=== PATIENT | male | born 1965 | race Caucasian/White ===

== ENCOUNTER 2017-05-25 13:38 | Inpatient (IN) | payer MEDICAID, MEDICARE ==
[2017-05-25] MEDS ORDERED: Albuterol/Ipratropium 3.0-0.5 MG/3 ML Neb Soln NEB ONE (13:46)
--- NOTE | 2017-05-25 13:58 | EDM.PDOC ---
ED HPI GENERAL MEDICAL PROBLEM - General Chief Complaint: Respiratory Problem Stated Complaint: SOB Time Seen by Provider: 05/25/17 13:40 Source of Information: Reports: Patient, Family, Old Records History Limitations: Reports: No Limitations - History of Present Illness INITIAL COMMENTS - FREE TEXT/NARRATIVE: Tim comes to [facility] ED with an 18 hr hx of progressive wheezing and SOB. He reports no prior chest congestion, fever, cough, chest pain or palpitations. He has chronic back pain with comorbid sciatica in LLE and just finished Medrol yesterday. He does not smoke at this time. - Related Data Allergies Allergy/AdvReac Type Severity Reaction Status Date / Time amoxicillin [Amoxicillin] Allergy Unknown unknown Verified 05/25/17 14:03 latex Allergy Unknown unknown Verified 05/25/17 14:03 venom-honey bee Allergy Unknown unknown Verified 05/25/17 14:03 [bee venom (honey bee)] mushrooms Allergy Unknown unknown Uncoded 05/25/17 14:03 Home Meds: Home Meds Celecoxib [CeleBREX] 200 mg PO DAILY 05/25/14 [History] Cyclobenzaprine [Flexeril] 10 mg PO Q8H PRN 05/25/14 [History] QUEtiapine Fumarate [Seroquel] 300 mg PO DAILY 05/25/14 [History] Zolpidem Tartrate [Ambien] 10 mg PO BEDTIME 05/25/14 [History] Albuterol Sulfate [Ventolin Hfa] 2 puff INH Q4H PRN 05/25/17 [History] Albuterol [Proventil Neb Soln] 2.5 mg INH Q4H PRN 05/25/17 [History] Baclofen [Baclofen] 10 - 20 mg PO BEDTIME 05/25/17 [History] Dexamethasone [Dexamethasone] 4 mg PO BID 05/25/17 [History] EPINEPHrine [Epipen] 0.3 mg IM ASDIRECTED PRN 05/25/17 [History] Escitalopram [Lexapro] 20 mg PO DAILY 05/25/17 [History] Fluticasone/Salmeterol [Advair Diskus 500-50] 1 puff INH BID 05/25/17 [History] Niacin [Niacin ER] 1,000 mg PO BEDTIME 05/25/17 [History] Nortriptyline 25 mg PO BEDTIME 05/25/17 [History] Omeprazole [Omeprazole] 20 mg PO DAILY 05/25/17 [History] Simvastatin [Zocor] 20 mg PO BEDTIME 05/25/17 [History] Tamsulosin [Tamsulosin 24 Hr] 0.4 mg PO DAILY 05/25/17 [History] hydrOXYzine Pamoate [Hydroxyzine Pamoate] 25 mg PO TID PRN 05/25/17 [History] rOPINIRole [Requip] 1 - 2 tab PO BEDTIME 05/25/17 [History] sitaGLIPtin Phos/Metformin HCl [Janumet 50-1,000 MG] 1 tab PO BID 05/25/17 [ History] traMADol HCl [Tramadol HCl] 50 mg PO TID PRN 05/25/17 [History] Past Medical History Respiratory History: Reports: COPD Musculoskeletal History: Reports: Back Pain, Chronic Neurological History: Reports: Other (See Below) (sciatica L leg) Social & Family History - Tobacco Use Smoking Status *Q: Former Smoker Years of Tobacco use: 18 Used Tobacco, but Quit: Yes Month Tobacco Last Used: dec ED ROS GENERAL - Review of Systems Review Of Systems: See Below Constitutional: Reports: Malaise, Weakness HEENT: Reports: No Symptoms Respiratory: Reports: Shortness of Breath, Wheezing Cardiovascular: Reports: Dyspnea on Exertion Endocrine: Reports: No Symptoms GI/Abdominal: Reports: No Symptoms : Reports: No Symptoms Musculoskeletal: Reports: No Symptoms Skin: Reports: No Symptoms Neurological: Reports: Pre-Existing Deficit, Other (sciatica L leg) Psychiatric: Reports: No Symptoms Hematologic/Lymphatic: Reports: No Symptoms Immunologic: Reports: No Symptoms ED EXAM, GENERAL - Physical Exam Exam: See Below Exam Limited By: No Limitations General Appearance: Alert, WD/WN, Moderate Distress, Obese Eye Exam: Bilateral Eye: EOMI, Normal Inspection, PERRL Ears: Normal External Exam Nose: Normal Inspection Throat/Mouth: Normal Inspection, Normal Oropharynx Head: Normocephalic Neck: Normal Inspection, Supple, Non-Tender, Full Range of Motion Respiratory/Chest: Chest Non-Tender, Decreased Breath Sounds, Rhonchi, Wheezing Cardiovascular: Normal Peripheral Pulses, No Edema, No JVD, No Murmur, Tachycardia GI/Abdominal: Normal Bowel Sounds, Soft, Non-Tender, No Organomegaly, No Distention, No Mass Back Exam: Normal Inspection Extremities: Normal Inspection Neurological: Alert, Oriented, CN II-XII Intact, Normal Cognition, No Motor/ Sensory Deficits Psychiatric: Normal Affect, Anxious Skin Exam: Warm, Dry, Intact Lymphatic: No Adenopathy Course - Vital Signs Text/Narrative:: Tim experienced no clinical improvement with the DuoNeb. His chest x ray notes infiltrates in R lung [place], and pneumonia is suspected. He will be admitted, and hospitalist notified. Last Recorded V/S: Last Vital Signs Temp 37.9 C 05/25/17 14:12 Pulse 140 H 05/25/17 14:12 Resp 28 H 05/25/17 14:12 BP 112/75 05/25/17 14:12 Pulse Ox 91 L 05/25/17 14:56 - Orders/Labs/Meds Orders: Active Orders 24 hr Category Date Time Status EKG Documentation Completion [RC] ASDIRECTED Care 05/25/17 13:52 Active Oxygen Therapy Adult [Oxygen Therapy, ED] [RC] Care 05/25/17 14:56 Active ASDIRECTED RT Aerosol Therapy [RC] ASDIRECTED Care 05/25/17 13:47 Active Chest 1V Frontal [CR] Stat Exams 05/25/17 13:52 Taken URINALYSIS W/MICROSCOPIC [UA W/MICROSCOPIC] [URIN] Stat Lab 05/25/17 14:05 Uncollected Sodium Chloride 0.9% [Saline Flush] Med 05/25/17 14:21 Active 10 ml FLUSH ASDIRECTED PRN Peripheral IV Insertion Adult [OM.PC] Routine Oth 05/25/17 14:21 Ordered EKG 12 Lead [EK] Routine Ther 05/25/17 13:52 Ordered Medication Orders Sodium Chloride (Saline Flush) 10 ml FLUSH ASDIRECTED PRN PRN Reason: Keep Vein Open Labs: Laboratory Tests 05/25/17 05/25/17 05/25/17 Range/Units 14:05 14:05 14:05 WBC 17.9 H (4.5-12.0) X10-3/uL RBC 4.61 (4.30-5.75) x10(6)uL Hgb 14.4 (11.5-15.5) g/dL Hct 42.0 (30.0-51.3) % MCV 91.0 (80-96) fL MCH 31.2 (27.7-33.6) pg MCHC 34.3 (32.2-35.4) g/dL RDW 14.6 (11.5-15.5) % Plt Count 247 (125-369) X10(3)uL MPV 6.8 L (7.4-10.4) fL Add Manual Diff Yes Neutrophils % (Manual) 75 (46-82) % Band Neutrophils % 2 (0-6) % Lymphocytes % (Manual) 15 (13-37) % Monocytes % (Manual) 8 (4-12) % Sodium 131 L (135-145) mmol/L Potassium 3.9 (3.5-5.3) mmol/L Chloride 96 L D (100-110) mmol/L Carbon Dioxide 22 L (23-29) mmol/L BUN 12 (5-20) mg/dL Creatinine 0.8 (0.6-1.3) mg/dL Est Cr Clr Drug Dosing 95.03 mL/min Estimated GFR (MDRD) > 60 (>60) BUN/Creatinine Ratio 15.0 (9-20) Glucose 266 H D (80-116) mg/dL Hemoglobin A1c (4.0-6.0) % Calcium 9.4 (8.6-10.2) mg/dL Troponin I (0.02-0.06) NG/ML B-Natriuretic Peptide (0-100) pg/mL TSH, Ultra Sensitive 0.68 (0.4-5.5) nlU/mL 05/25/17 05/25/17 05/25/17 Range/Units 14:05 14:05 14:05 WBC (4.5-12.0) X10-3/uL RBC (4.30-5.75) x10(6)uL Hgb (11.5-15.5) g/dL Hct (30.0-51.3) % MCV (80-96) fL MCH (27.7-33.6) pg MCHC (32.2-35.4) g/dL RDW (11.5-15.5) % Plt Count (125-369) X10(3)uL MPV (7.4-10.4) fL Add Manual Diff Neutrophils % (Manual) (46-82) % Band Neutrophils % (0-6) % Lymphocytes % (Manual) (13-37) % Monocytes % (Manual) (4-12) % Sodium (135-145) mmol/L Potassium (3.5-5.3) mmol/L Chloride (100-110) mmol/L Carbon Dioxide (23-29) mmol/L BUN (5-20) mg/dL Creatinine (0.6-1.3) mg/dL Est Cr Clr Drug Dosing mL/min Estimated GFR (MDRD) (>60) BUN/Creatinine Ratio (9-20) Glucose (80-116) mg/dL Hemoglobin A1c 7.2 H (4.0-6.0) % Calcium (8.6-10.2) mg/dL Troponin I < 0.01 L (0.02-0.06) NG/ML B-Natriuretic Peptide 42 (0-100) pg/mL TSH, Ultra Sensitive (0.4-5.5) nlU/mL Meds: Medications Generic Name Dose Route Start Last Admin Trade Name Freq PRN Reason Stop Dose Admin Sodium Chloride 10 ml 05/25/17 14:21 Saline Flush FLUSH ASDIRECTED PRN Keep Vein Open Discontinued Medications Generic Name Dose Route Start Last Admin Trade Name Freq PRN Reason Stop Dose Admin Albuterol/Ipratropium 3 ml 05/25/17 13:46 05/25/17 13:50 Duoneb 3.0-0.5 Mg/3 Ml NEB 05/25/17 13:47 3 ml ONETIME ONE Administration Departure - Departure Time of Disposition: 15:16 Disposition: Admitted As Inpatient 67 Condition: Poor Clinical Impression: Acute exacerbation of COPD with asthma Community acquired pneumonia Qualifiers: Laterality: right Lung location: unspecified part of lung Qualified Code(s): J18.9 - Pneumonia, unspecified organism - Discharge Information Referrals: Alex Umana MD [Primary Care Provider] - Forms: ED Department Discharge - Problem List & Annotations (1) Acute exacerbation of COPD with asthma SNOMED Code(s): 958058555 Code(s): J44.1 - CHRONIC OBSTRUCTIVE PULMONARY DISEASE W (ACUTE) EXACERBATION ; J45.901 - UNSPECIFIED ASTHMA WITH (ACUTE) EXACERBATION Status: Acute Current Visit: Yes Annotation/Comment:: Admission to [facility]. (2) Community acquired pneumonia SNOMED Code(s): 507982914 Code(s): J18.9 - PNEUMONIA, UNSPECIFIED ORGANISM Status: Acute Current Visit: Yes Annotation/Comment:: Admission to [facility]. Qualifiers: Laterality: right Lung location: unspecified part of lung Qualified Code( s): J18.9 - Pneumonia, unspecified organism - My Orders Last 24 Hours: My Active Orders 05/25/17 13:47 RT Aerosol Therapy [RC] ASDIRECTED 05/25/17 13:52 EKG Documentation Completion [RC] ASDIRECTED Chest 1V Frontal [CR] Stat EKG 12 Lead [EK] Routine 05/25/17 14:05 URINALYSIS W/MICROSCOPIC [UA W/MICROSCOPIC] [URIN] Stat 05/25/17 14:21 Sodium Chloride 0.9% [Saline Flush] 10 ml FLUSH ASDIRECTED PRN Peripheral IV Insertion Adult [OM.PC] Routine 05/25/17 14:56 Oxygen Therapy Adult [Oxygen Therapy, ED] [RC] ASDIRECTED - Assessment/Plan Last 24 Hours: My Active Orders 05/25/17 13:47 RT Aerosol Therapy [RC] ASDIRECTED 05/25/17 13:52 EKG Documentation Completion [RC] ASDIRECTED Chest 1V Frontal [CR] Stat EKG 12 Lead [EK] Routine 05/25/17 14:05 URINALYSIS W/MICROSCOPIC [UA W/MICROSCOPIC] [URIN] Stat 05/25/17 14:21 Sodium Chloride 0.9% [Saline Flush] 10 ml FLUSH ASDIRECTED PRN Peripheral IV Insertion Adult [OM.PC] Routine 05/25/17 14:56 Oxygen Therapy Adult [Oxygen Therapy, ED] [] ASDIRECTED
[2017-05-25] MEDS ORDERED: Sodium Chloride 0.9% 10 ML Syringe FLUSH PRN (14:21)
[2017-05-25] MEDS ORDERED: predniSONE 20 MG Tab PO ONE (15:23)
[2017-05-25] MEDS ORDERED: Levofloxacin/Dextrose 5%-Water 750 MG in Premix Bag 1 BAG IV ONE (15:27)
--- NOTE | 2017-05-25 15:44 | CR ---
INDICATION: Dyspnea, history of COPD. COMPARISON: 25 May 2014. PORTABLE CHEST: Moderate cardiomegaly, with no definite interstitial edema, stable. Moderate mid to inferior lung, perihilar, bibasilar patchy airspace opacity and volume loss, mildly increased in the mid left lung field, mildly decreased left perihilar, basilar region, mildly increased in the right lung field. Minimal bilateral pleural effusions, mildly improved. No pneumothorax. No other interval change. IMPRESSION: 1. Moderate mid to inferior pulmonic consolidation for pneumonia versus aspiration versus segmental atelectasis and/or parenchymal scarring change, mildly increased right, mildly increased mid left, mildly decreased left perihilar, basilar region. 2. Minimal bilateral pleural effusions, mildly improved. MTDD
[2017-05-25] MEDS: Sodium Chloride 0.9% 1,000 ML IV SCH (16:24)
[2017-05-25] MEDS ORDERED: Aztreonam 2 GM in Sodium Chloride 0.9% 100 ML IV ONE (18:00)
[2017-05-25] MEDS ORDERED: HYDROXYZINE PAMOATE 25 MG PO PRN (20:13)
[2017-05-25] MEDS ORDERED: rOPINIRole 1 MG Tab ONE (20:38)
[2017-05-25] MEDS: Albuterol/Ipratropium 3.0-0.5 MG/3 ML Neb Soln NEB SCH ×2 (20:47)
[2017-05-25] MEDS: Zolpidem 5 MG Tab PO SCH (20:53)
[2017-05-25] MEDS: Nortriptyline 25 MG Cap PO SCH (20:56)
[2017-05-25] MEDS: Baclofen 10 MG Tab PO SCH (20:57)
[2017-05-25] MEDS ORDERED: rOPINIRole 0.5 MG Tab PO SCH (21:00)
[2017-05-25] MEDS ORDERED: Simvastatin 40 MG Tab PO SCH (21:00)
[2017-05-25] MEDS: HYDROmorphone 2 MG/ML SDV IVPUSH PRN (21:17)
[2017-05-25] MEDS: Insulin Aspart 100 Units/ML 3 ML Pen SUBCUT SCH (21:47)
[2017-05-25] MEDS: metFORMIN 1,000 MG Tab PO SCH (21:48)
[2017-05-25] MEDS: hydrOXYzine HCl 25 MG Tab PO PRN (22:17)
[2017-05-26] MEDS: HYDROmorphone 2 MG/ML SDV IVPUSH PRN ×4 (01:09→20:39)
[2017-05-26] MEDS: Albuterol/Ipratropium 3.0-0.5 MG/3 ML Neb Soln INH PRN ×3 (01:10→02:57)
[2017-05-26] MEDS: Sodium Chloride 0.9% 1,000 ML IV SCH ×3 (01:44→19:19)
[2017-05-26] MEDS: Albuterol/Ipratropium 3.0-0.5 MG/3 ML Neb Soln NEB SCH ×4 (06:31→20:36)
[2017-05-26] MEDS ORDERED: Cyclobenzaprine 10 MG Tab PO PRN (08:09)
[2017-05-26] MEDS: Insulin Aspart 100 Units/ML 3 ML Pen SUBCUT SCH ×3 (08:12→17:30)
[2017-05-26] MEDS: hydrOXYzine HCl 25 MG Tab PO PRN ×2 (08:24→16:10)
[2017-05-26] MEDS: methylPREDNISolone Sodium Succinate 125 MG/2 ML SDV IVPUSH SCH ×2 (08:44→20:35)
[2017-05-26] MEDS: metFORMIN 1,000 MG Tab PO SCH (08:45)
[2017-05-26] MEDS: Pantoprazole 40 MG Tab.CR PO SCH ×2 (08:45→20:38)
[2017-05-26] MEDS: Escitalopram 20 MG Tab PO SCH (08:45)
[2017-05-26] MEDS ORDERED: Albuterol/Ipratropium 3.0-0.5 MG/3 ML Neb Soln INH PRN (09:00)
--- NOTE | 2017-05-26 09:10 | PCM.HP ---
H&P History of Present Illness - General Date of Service: 05/26/17 Admit Problem/Dx: Admission Diagnosis/Problem Admission Diagnosis/Problem Pneumonia Source of Information: Patient History Limitations: Reports: No Limitations - History of Present Illness Initial Comments - Free Text/Narative: This is a 52-year-old male patient but said 2 day history of shortness of breath and dry cough. He was seen in the clinic yesterday and was profoundly hypoxic and sent to the ER and was admitted. Chest x-ray showed a pneumonia on the right side or aspiration. He states the ER told him he had a fever but he does not feel hot or cold. He has no nasal congestion, sore throat. He does have a history of COPD and asthma. He was a smoker for years and is now quit. He also complains of his back pain. He's had it for several months. He states the pain goes down his left leg and both legs are atrophied. He states she's lost over 50 pounds unintended. He's been seen the chiropractor and there is a MRI ordered this morning by Dr. Willard. low back Pain Score (Numeric/FACES): 10 - Related Data Allergies/Adverse Reactions: Allergies Allergy/AdvReac Type Severity Reaction Status Date / Time amoxicillin [Amoxicillin] Allergy Unknown unknown Verified 05/25/17 20:58 latex Allergy Unknown unknown Verified 05/25/17 20:58 venom-honey bee Allergy Unknown unknown Verified 05/25/17 20:58 [bee venom (honey bee)] mushrooms Allergy Unknown unknown Uncoded 05/25/17 20:58 Home Medications: Home Meds Celecoxib [CeleBREX] 200 mg PO BEDTIME 05/25/14 [History] Cyclobenzaprine [Flexeril] 10 mg PO TID 05/25/14 [History] QUEtiapine Fumarate [Seroquel] 300 mg PO BEDTIME 05/25/14 [History] Zolpidem Tartrate [Ambien] 10 mg PO BEDTIME 05/25/14 [History] Albuterol Sulfate [Ventolin Hfa] 2 puff INH Q4H PRN 05/25/17 [History] Albuterol [Proventil Neb Soln] 2.5 mg INH Q4H PRN 05/25/17 [History] Baclofen [Baclofen] 20 mg PO BEDTIME 05/25/17 [History] EPINEPHrine [Epipen] 0.3 mg IM ASDIRECTED PRN 05/25/17 [History] Escitalopram [Lexapro] 20 mg PO DAILY 05/25/17 [History] Fluticasone/Salmeterol [Advair Diskus 500-50] 1 puff INH BID 05/25/17 [History] Niacin [Niacin ER] 1,000 mg PO BEDTIME 05/25/17 [History] Nortriptyline 25 mg PO BEDTIME 05/25/17 [History] Omeprazole [Omeprazole] 20 mg PO BEDTIME 05/25/17 [History] Simvastatin [Zocor] 20 mg PO BEDTIME 05/25/17 [History] Tamsulosin [Tamsulosin 24 Hr] 0.4 mg PO BEDTIME 05/25/17 [History] hydrOXYzine Pamoate [Hydroxyzine Pamoate] 25 - 50 mg PO TID PRN 05/25/17 [ History] rOPINIRole [Requip] 1 mg PO BEDTIME 05/25/17 [History] sitaGLIPtin Phos/Metformin HCl [Janumet 50-1,000 MG] 1 tab PO BID 05/25/17 [ History] traMADol HCl [Tramadol HCl] 50 mg PO TID 05/25/17 [History] Past Medical History HEENT History: Reports: Impaired Vision Cardiovascular History: Reports: High Cholesterol, Hypertension Respiratory History: Reports: COPD Musculoskeletal History: Reports: Back Pain, Chronic Other Musculoskeletal History: Ankle, Bilateral wrist, and 3 toe fx Neurological History: Reports: Other (See Below) (sciatica L leg) Psychiatric History: Reports: Anxiety, Depression Endocrine/Metabolic History: Reports: Diabetes, Type II Dermatologic History: Reports: Psoriasis - Infectious Disease History Infectious Disease History: Reports: Chicken Pox - Past Surgical History HEENT Surgical History: Reports: None GI Surgical History: Reports: Appendectomy, Colonoscopy Social & Family History - Family History Family Medical History: Noncontributory - Tobacco Use Smoking Status *Q: Former Smoker Years of Tobacco use: 18 Used Tobacco, but Quit: Yes Month Tobacco Last Used: Gigi Tobacco Use Comment: quit 4 years ago - Caffeine Use Caffeine Use: Reports: None - Recreational Drug Use Recreational Drug Use: Yes Drug Use in Last 12 Months: Yes Recreational Drug Type: Reports: Marijuana/Hashish Recreational Drug Use Frequency: Rarely H&P Review of Systems - Review of Systems: Review Of Systems: See Below General: Reports: Diaphoresis, Weight Loss. Denies: Fever, Chills, Malaise, Weakness HEENT: Reports: No Symptoms Pulmonary: Reports: Shortness of Breath, Cough. Denies: Wheezing, Pleuritic Chest Pain, Sputum, Hemoptysis Cardiovascular: Reports: No Symptoms Gastrointestinal: Reports: No Symptoms Genitourinary: Reports: No Symptoms Musculoskeletal: Reports: Back Pain (Lumbar), Leg Pain (Left) Skin: Reports: No Symptoms Psychiatric: Reports: Anxiety Neurological: Reports: No Symptoms Hematologic/Lymphatic: Reports: No Symptoms Immunologic: Reports: No Symptoms Exam - Exam Exam: See Below - Vital Signs Vital Signs: Last Vital Signs Temp 97.7 F 05/26/17 06:00 Pulse 108 H 05/26/17 06:00 Resp 23 H 05/26/17 06:00 BP 125/89 05/26/17 06:00 Pulse Ox 95 05/26/17 06:00 Weight: 193 lb 3.2 oz - Exam General: Alert, Oriented, Cooperative HEENT: Hearing Intact, Mucosa Moist & [place], TMs Clear Neck: Supple, Trachea Midline Lungs: Normal Respiratory Effort, Decreased Breath Sounds (Right), Crackles ( Right base). No: Rales, Rhonchi, Wheezing Cardiovascular: Regular Rate, Regular Rhythm. No: Systolic Murmur, Diastolic Murmur GI/Abdominal Exam: Normal Bowel Sounds, Soft, Non-Tender, No Organomegaly, No Distention, No Abnormal Bruit, No Mass Back Exam: Normal Inspection, Muscle Spasm Extremities: No Pedal Edema, Other (Atrophied quadriceps bilateral) Skin: Warm, Dry, Intact Neurological: Normal Speech Neuro Extensive - Mental Status: Alert, Oriented x3, Normal Mood/Affect, Normal Cognition Psychiatric: Alert, Normal Mood - Patient Data Lab Results Last 24 hrs: Laboratory Results - last 24 hr 05/25/17 05/25/17 05/26/17 Range/Units 17:45 21:42 06:10 WBC 18.1 H (4.5-12.0) X10-3/uL RBC 4.00 L (4.30-5.75) x10(6)uL Hgb 12.7 (11.5-15.5) g/dL Hct 36.3 (30.0-51.3) % MCV 90.6 (80-96) fL MCH 31.7 (27.7-33.6) pg MCHC 35.0 (32.2-35.4) g/dL RDW 14.7 (11.5-15.5) % Plt Count 225 (125-369) X10(3)uL MPV 6.8 L (7.4-10.4) fL Add Manual Diff Yes Neutrophils % (Manual) 83 H (46-82) % Band Neutrophils % 3 (0-6) % Lymphocytes % (Manual) 13 (13-37) % Monocytes % (Manual) 1 L (4-12) % Toxic Granulation Moderate H (NOT SEEN) D-Dimer, Quantitative (100-400) ng/mL Sodium (135-145) mmol/L Potassium (3.5-5.3) mmol/L Chloride (100-110) mmol/L Carbon Dioxide (23-29) mmol/L BUN (5-20) mg/dL Creatinine (0.6-1.3) mg/dL Est Cr Clr Drug Dosing mL/min Estimated GFR (MDRD) (>60) BUN/Creatinine Ratio (9-20) Glucose (80-116) mg/dL POC Glucose 245 H (80-116) mg/dL Calcium (8.6-10.2) mg/dL B-Natriuretic Peptide (0-100) pg/mL Urine Color Yellow (YELLOW) Urine Appearance Clear (CLEAR) Urine pH 6.0 (5.0-6.5) Ur Specific [place] 1.020 (1.010-1.025) Urine Protein Negative (NEGATIVE) mg/dL Urine Glucose (UA) >1000 H (NEGATIVE) mg/dL Urine Ketones Negative (NEGATIVE) mg/dL Urine Occult Blood Moderate H (NEGATIVE) Urine Nitrite Negative (NEGATIVE) Urine Bilirubin Negative (NEGATIVE) Urine Urobilinogen 4 H (NEGATIVE) mg/dL Ur Leukocyte Esterase Negative (NEGATIVE) Urine RBC 5-10 (0) Urine WBC 0-5 (0) Ur Squamous Epith Cells Rare (NS,R,O) Urine Bacteria Few H (NS) 05/26/17 05/26/17 05/26/17 Range/Units 06:10 06:10 06:10 WBC (4.5-12.0) X10-3/uL RBC (4.30-5.75) x10(6)uL Hgb (11.5-15.5) g/dL Hct (30.0-51.3) % MCV (80-96) fL MCH (27.7-33.6) pg MCHC (32.2-35.4) g/dL RDW (11.5-15.5) % Plt Count (125-369) X10(3)uL MPV (7.4-10.4) fL Add Manual Diff Neutrophils % (Manual) (46-82) % Band Neutrophils % (0-6) % Lymphocytes % (Manual) (13-37) % Monocytes % (Manual) (4-12) % Toxic Granulation (NOT SEEN) D-Dimer, Quantitative 3650 H (100-400) ng/mL Sodium 132 L (135-145) mmol/L Potassium 4.1 (3.5-5.3) mmol/L Chloride 99 L (100-110) mmol/L Carbon Dioxide 22 L (23-29) mmol/L BUN 11 (5-20) mg/dL Creatinine 0.8 (0.6-1.3) mg/dL Est Cr Clr Drug Dosing 95.03 mL/min Estimated GFR (MDRD) > 60 (>60) BUN/Creatinine Ratio 13.8 (9-20) Glucose 228 H (80-116) mg/dL POC Glucose (80-116) mg/dL Calcium 8.9 (8.6-10.2) mg/dL B-Natriuretic Peptide 57 (0-100) pg/mL Urine Color (YELLOW) Urine Appearance (CLEAR) Urine pH (5.0-6.5) Ur Specific [place] (1.010-1.025) Urine Protein (NEGATIVE) mg/dL Urine Glucose (UA) (NEGATIVE) mg/dL Urine Ketones (NEGATIVE) mg/dL Urine Occult Blood (NEGATIVE) Urine Nitrite (NEGATIVE) Urine Bilirubin (NEGATIVE) Urine Urobilinogen (NEGATIVE) mg/dL Ur Leukocyte Esterase (NEGATIVE) Urine RBC (0) Urine WBC (0) Ur Squamous Epith Cells (NS,R,O) Urine Bacteria (NS) 05/26/17 Range/Units 07:40 WBC (4.5-12.0) X10-3/uL RBC (4.30-5.75) x10(6)uL Hgb (11.5-15.5) g/dL Hct (30.0-51.3) % MCV (80-96) fL MCH (27.7-33.6) pg MCHC (32.2-35.4) g/dL RDW (11.5-15.5) % Plt Count (125-369) X10(3)uL MPV (7.4-10.4) fL Add Manual Diff Neutrophils % (Manual) (46-82) % Band Neutrophils % (0-6) % Lymphocytes % (Manual) (13-37) % Monocytes % (Manual) (4-12) % Toxic Granulation (NOT SEEN) D-Dimer, Quantitative (100-400) ng/mL Sodium (135-145) mmol/L Potassium (3.5-5.3) mmol/L Chloride (100-110) mmol/L Carbon Dioxide (23-29) mmol/L BUN (5-20) mg/dL Creatinine (0.6-1.3) mg/dL Est Cr Clr Drug Dosing mL/min Estimated GFR (MDRD) (>60) BUN/Creatinine Ratio (9-20) Glucose (80-116) mg/dL POC Glucose 204 H (80-116) mg/dL Calcium (8.6-10.2) mg/dL B-Natriuretic Peptide (0-100) pg/mL Urine Color (YELLOW) Urine Appearance (CLEAR) Urine pH (5.0-6.5) Ur Specific [place] (1.010-1.025) Urine Protein (NEGATIVE) mg/dL Urine Glucose (UA) (NEGATIVE) mg/dL Urine Ketones (NEGATIVE) mg/dL Urine Occult Blood (NEGATIVE) Urine Nitrite (NEGATIVE) Urine Bilirubin (NEGATIVE) Urine Urobilinogen (NEGATIVE) mg/dL Ur Leukocyte Esterase (NEGATIVE) Urine RBC (0) Urine WBC (0) Ur Squamous Epith Cells (NS,R,O) Urine Bacteria (NS) Result Diagrams: 05/26/17 06:10 05/26/17 06:10 *Q Meaningful Use (ADM) - VTE *Q VTE Criteria *Q: - Stroke *Q Stroke Criteria *Q: - AMI *Q AMI Criteria *Q: - Problem List (1) Low back pain with left-sided sciatica SNOMED Code(s): 744719520 ICD Code: M54.42 - LUMBAGO WITH SCIATICA, LEFT SIDE Status: Acute Current Visit: Yes (2) Unintended weight loss SNOMED Code(s): 522648195 ICD Code: R63.4 - ABNORMAL WEIGHT LOSS Status: Acute Current Visit: Yes (3) Microscopic hematuria SNOMED Code(s): 087994182 ICD Code: R31.29 - OTHER MICROSCOPIC HEMATURIA Status: Acute Current Visit: Yes (4) Elevated d-dimer SNOMED Code(s): 887905942 ICD Code: R79.89 - OTHER SPECIFIED ABNORMAL FINDINGS OF BLOOD CHEMISTRY Status: Acute Current Visit: Yes (5) Acute exacerbation of COPD with asthma SNOMED Code(s): 481152387 ICD Code: J44.1 - CHRONIC OBSTRUCTIVE PULMONARY DISEASE W (ACUTE) EXACERBATION; J45.901 - UNSPECIFIED ASTHMA WITH (ACUTE) EXACERBATION Status: Acute Current Visit: Yes Problem Details: Admission to [facility]. (6) Community acquired pneumonia SNOMED Code(s): 739280906 ICD Code: J18.9 - PNEUMONIA, UNSPECIFIED ORGANISM Status: Acute Current Visit: Yes Problem Details: Admission to [facility]. Qualifiers: Laterality: right Lung location: unspecified part of lung Qualified Code( s): J18.9 - Pneumonia, unspecified organism (7) Type 2 diabetes mellitus SNOMED Code(s): 81526955 ICD Code: E11.9 - TYPE 2 DIABETES MELLITUS WITHOUT COMPLICATIONS Status: Acute Current Visit: Yes Problem List Initiated/Reviewed/Updated: Yes Orders Last 24hrs: Active Orders 24 hr Category Date Time Status Accu Check [Blood Glucose Check, Bedside] [] Care 05/26/17 08:14 Active QIDACANDBED Blood Glucose Check, Bedside [] TIDMEALS Care 05/25/17 20:11 Active RT Aerosol Therapy [] ASDIRECTED Care 05/25/17 20:11 Active Telemetry Monitoring [Cardiac Monitoring] [] 08,16,00 Care 05/25/17 16:59 Active Consistent Carbohydrate Diet [DIET] Diet 05/26/17 Breakfast Active Abdomen Pelvis wo Cont [CT] Routine Exams 05/26/17 09:02 Ordered Chest w wo Cont [CT] Routine Exams 05/26/17 09:02 Ordered CULTURE BLOOD [BC] Urgent Lab 05/26/17 08:19 Received CULTURE BLOOD [BC] Urgent Lab 05/26/17 08:27 Received CULTURE SPUTUM + SMEAR [RM] Routine Lab 05/26/17 08:16 Uncollected Albuterol/Ipratropium [DuoNeb 3.0-0.5 MG/3 ML] Med 05/26/17 09:00 Active 3 ml INH Q2H PRN Albuterol/Ipratropium [DuoNeb 3.0-0.5 MG/3 ML] Med 05/25/17 20:15 Active 3 ml NEB QIDRT Baclofen [Lioresal] Med 05/25/17 21:00 Active 10 mg PO BEDTIME Celecoxib [CeleBREX] Med 05/26/17 21:00 Active 200 mg PO BEDTIME Cyclobenzaprine [Flexeril] Med 05/26/17 08:09 Active 10 mg PO Q8H PRN Escitalopram [Lexapro] Med 05/26/17 09:00 Active 20 mg PO DAILY HYDROmorphone [Dilaudid] Med 05/25/17 20:12 Active 1 mg IVPUSH Q4H PRN Insulin Aspart [NovoLOG] Med 05/25/17 20:15 Active See Protocol SUBCUT TIDMEALS Levofloxacin/Dextrose 5%-Water [Levaquin in D5W 750 MG/ Med 05/26/17 16:00 Active 150 ML] 750 mg Premix Bag 1 bag IV Q24H Niacin Med 05/26/17 21:00 Active 500 mg PO BEDTIME Nortriptyline Med 05/25/17 21:00 Active 25 mg PO BEDTIME Pantoprazole [ProTONIX] Med 05/26/17 09:00 Active 40 mg PO BEDTIME QUEtiapine [SEROquel] Med 05/26/17 21:00 Active 300 mg PO BEDTIME Simvastatin [Zocor] Med 05/26/17 21:00 Active 20 mg PO BEDTIME SitaGLIPtin [Januvia] Med 05/25/17 21:30 Active 50 mg PO BID Sodium Chloride 0.9% [Normal Saline] 1,000 ml Med 05/25/17 15:30 Active IV ASDIRECTED Tamsulosin [Flomax] Med 05/26/17 21:00 Active 0.4 mg PO BEDTIME Zolpidem [Ambien] Med 05/25/17 21:00 Active 10 mg PO BEDTIME hydrOXYzine HCl [Atarax] Med 05/25/17 21:46 Active 25 mg PO TID PRN metFORMIN [Glucophage] Med 05/25/17 21:00 Active 1,000 mg PO BID methylPREDNISolone Sod Succ [Solu-MEDROL] Med 05/26/17 08:15 Active 125 mg IVPUSH Q12H rOPINIRole [Requip] Med 05/26/17 21:00 Active 1 mg PO BEDTIME Blood Culture x2 Reflex Set [OM.PC] Urgent Oth 05/26/17 08:15 Ordered Code Status [Resuscitation Status] Routine Resus Stat 05/25/17 20:15 Ordered Medication Orders Albuterol/Ipratropium (Duoneb 3.0-0.5 Mg/3 Ml) 3 ml NEB QIDRT [facility] Last Admin: 05/26/17 06:31 Dose: 3 ml Admin: 05/25/17 20:47 Dose: Admin: 05/25/17 20:47 Dose: 3 ml Albuterol/Ipratropium (Duoneb 3.0-0.5 Mg/3 Ml) 3 ml INH Q2H PRN PRN Reason: Shortness of Breath Baclofen (Lioresal) 10 mg PO BEDTIME [facility] Last Admin: 05/25/17 20:57 Dose: 10 mg Celecoxib (Celebrex) 200 mg PO BEDTIME [facility] Cyclobenzaprine HCl (Flexeril) 10 mg PO Q8H PRN PRN Reason: Pain Escitalopram Oxalate (Lexapro) 20 mg PO DAILY [facility] Last Admin: 05/26/17 08:45 Dose: 20 mg Hydromorphone HCl (Dilaudid) 1 mg IVPUSH Q4H PRN PRN Reason: Breakthrough Pain Last Admin: 05/26/17 06:47 Dose: 1 mg Admin: 05/26/17 01:09 Dose: 1 mg Admin: 05/25/17 21:17 Dose: 1 mg Hydroxyzine HCl (Atarax) 25 mg PO TID PRN PRN Reason: Anxiety Last Admin: 05/26/17 08:24 Dose: 25 mg Admin: 05/25/17 22:17 Dose: 25 mg Sodium Chloride (Normal Saline) 1,000 mls @ 125 mls/hr IV ASDIRECTED [facility] Last Admin: 05/26/17 08:26 Dose: 150 mls/hr Infusion: 05/26/17 08:25 Dose: 150 mls/hr Admin: 05/26/17 01:44 Dose: 150 mls/hr Infusion: 05/25/17 23:05 Dose: 150 mls/hr Admin: 05/25/17 16:24 Dose: 150 mls/hr Levofloxacin/Dextrose 750 mg/ (Premix) 150 mls @ 100 mls/hr IV Q24H [facility] Insulin Aspart (Novolog) 0 unit SUBCUT TIDMEALS [facility] PRN Reason: Protocol Last Admin: 05/26/17 08:12 Dose: 6 unit Admin: 05/25/17 21:47 Dose: Metformin HCl (Glucophage) 1,000 mg PO BID [facility] Last Admin: 05/26/17 08:45 Dose: 1,000 mg Admin: 05/25/17 21:48 Dose: 1,000 mg Methylprednisolone Sodium Succinate (Solu-Medrol) 125 mg IVPUSH Q12H [facility] Last Admin: 05/26/17 08:44 Dose: 125 mg Niacin (Niacin) 500 mg PO BEDTIME [facility] Nortriptyline HCl (Nortriptyline) 25 mg PO BEDTIME [facility] Last Admin: 05/25/17 20:56 Dose: 25 mg Pantoprazole Sodium (Protonix) 40 mg PO BEDTIME [facility] Last Admin: 05/26/17 08:45 Dose: 40 mg Quetiapine Fumarate (Seroquel) 300 mg PO BEDTIME [facility] Ropinirole HCl (Requip) 1 mg PO BEDTIME [facility] Simvastatin (Zocor) 20 mg PO BEDTIME [facility] Sitagliptin Phosphate (Januvia) 50 mg PO BID [facility] Last Admin: 05/26/17 08:45 Dose: 50 mg Admin: 05/25/17 21:49 Dose: 50 mg Sodium Chloride (Saline Flush) 10 ml FLUSH ASDIRECTED PRN PRN Reason: Keep Vein Open Tamsulosin HCl (Flomax) 0.4 mg PO BEDTIME [facility] Zolpidem Tartrate (Ambien) 10 mg PO BEDTIME [facility] Last Admin: 05/25/17 20:53 Dose: 10 mg Assessment/Plan Comment:: 1. Admit for antibiotics and oxygen therapy. 2. Proceed to CT scan of the chest, abdomen, pelvis regarding elevated d-dimer, pneumonia, hypoxia, unintended weight loss, microscopic hematuria. 3. Proceed with MRI of his low back today 4. Levaquin 750 mg IV every 24 hours 5. Solu-Medrol 125 mg every 12 hours 6. Accu-Cheks 4 times a day 7. Sliding scale insulin 8. Start home meds 9. Up ad ally. 10. ADA diet.
[2017-05-26] MEDS ORDERED: Iopamidol 755 Mg/ML 75 ML Bottle IV ONE (11:27)
[2017-05-26] MEDS: Levofloxacin/Dextrose 5%-Water 750 MG in Premix Bag 1 BAG IV SCH (16:23)
[2017-05-26] MEDS: Zolpidem 5 MG Tab PO SCH (20:36)
[2017-05-26] MEDS: Celecoxib 200 MG Cap PO SCH (20:36)
[2017-05-26] MEDS: Baclofen 10 MG Tab PO SCH (20:37)
[2017-05-26] MEDS: Tamsulosin 0.4 MG Cap.ER PO SCH (20:37)
[2017-05-26] MEDS: Nortriptyline 25 MG Cap PO SCH (20:37)
[2017-05-26] MEDS: Niacin 500 MG Cap.ER PO SCH (20:37)
[2017-05-26] MEDS: Simvastatin 20 MG Tab PO SCH (20:38)
[2017-05-26] MEDS: QUEtiapine 100 MG Tab PO SCH (20:38)
[2017-05-26] MEDS: rOPINIRole 1 MG Tab PO SCH (20:38)
[2017-05-27] MEDS: Sodium Chloride 0.9% 1,000 ML IV SCH ×3 (03:26→20:49)
[2017-05-27] MEDS: Albuterol/Ipratropium 3.0-0.5 MG/3 ML Neb Soln NEB SCH ×4 (07:11→21:14)
[2017-05-27] MEDS: methylPREDNISolone Sodium Succinate 125 MG/2 ML SDV IVPUSH SCH ×2 (07:49→16:53)
[2017-05-27] MEDS: Escitalopram 20 MG Tab PO SCH (08:34)
[2017-05-27] MEDS: Insulin Aspart 100 Units/ML 3 ML Pen SUBCUT SCH ×3 (08:36→18:26)
[2017-05-27] MEDS ORDERED: hydrOXYzine HCl 25 MG Tab PO PRN (09:11)
--- NOTE | 2017-05-27 09:16 | PCM.PN ---
- General Info Date of Service: 05/27/17 Admission Dx/Problem (Free Text): Patient states he feels better today than yesterday. He reported to the respiratory therapist though he felt worse today. He states she's cough and has a little chills but no fevers. No chest pain. Later in the morning the patient was very short of breath. And I came back and he says he thinks it was a panic attack. Nurses report that he soaked through 3 bedsheets with diaphoresis last night. He sees he slept well. - Patient Data Vitals - Most Recent: Last Vital Signs Temp 96.8 F 05/27/17 07:58 Pulse 120 H 05/27/17 07:58 Resp 32 H 05/27/17 07:58 BP 115/80 05/27/17 03:31 Pulse Ox 95 05/27/17 08:54 Weight - Most Recent: 198 lb 14.4 oz I&O - Last 24 Hours: Intake & Output 05/26/17 05/27/17 05/27/17 22:59 06:59 14:59 Intake Total 800 1090 Balance 800 1090 Lab Results Last 24 Hours: Laboratory Results - last 24 hr 05/26/17 05/26/17 05/26/17 Range/Units 11:28 17:06 20:51 WBC (4.5-12.0) X10-3/uL RBC (4.30-5.75) x10(6)uL Hgb (11.5-15.5) g/dL Hct (30.0-51.3) % MCV (80-96) fL MCH (27.7-33.6) pg MCHC (32.2-35.4) g/dL RDW (11.5-15.5) % Plt Count (125-369) X10(3)uL MPV (7.4-10.4) fL Add Manual Diff Neutrophils % (Manual) (46-82) % Band Neutrophils % (0-6) % Lymphocytes % (Manual) (13-37) % Monocytes % (Manual) (4-12) % ABG pH (7.35-7.45) ABG pCO2 (35-45) mmHg ABG pO2 (83-108) mmHg ABG HCO3 (22-26) mmol/L ABG O2 Saturation (96-97) % ABG Base Excess (-2-2) Art Test O2 Delivery Device Sodium (135-145) mmol/L Potassium (3.5-5.3) mmol/L Chloride (100-110) mmol/L Carbon Dioxide (23-29) mmol/L BUN (5-20) mg/dL Creatinine (0.6-1.3) mg/dL Est Cr Clr Drug Dosing mL/min Estimated GFR (MDRD) (>60) BUN/Creatinine Ratio (9-20) Glucose (80-116) mg/dL POC Glucose 239 H 274 H 183 H D (80-116) mg/dL Calcium (8.6-10.2) mg/dL Total Bilirubin (0.1-1.3) mg/dL AST (5-27) IU/L ALT (14-26) IU/L Alkaline Phosphatase (56-112) IU/L Total Protein (6.0-8.0) g/dL Albumin (3.5-5.2) g/dL Globulin g/dL Albumin/Globulin Ratio 05/27/17 05/27/17 05/27/17 Range/Units 06:20 06:20 08:25 WBC 15.9 H (4.5-12.0) X10-3/uL RBC 3.75 L (4.30-5.75) x10(6)uL Hgb 11.7 (11.5-15.5) g/dL Hct 34.1 (30.0-51.3) % MCV 91.1 (80-96) fL MCH 31.2 (27.7-33.6) pg MCHC 34.3 (32.2-35.4) g/dL RDW 14.5 (11.5-15.5) % Plt Count 189 (125-369) X10(3)uL MPV 7.0 L (7.4-10.4) fL Add Manual Diff Yes Neutrophils % (Manual) 80 (46-82) % Band Neutrophils % 5 (0-6) % Lymphocytes % (Manual) 10 L (13-37) % Monocytes % (Manual) 5 (4-12) % ABG pH 7.43 (7.35-7.45) ABG pCO2 30 L (35-45) mmHg ABG pO2 53 L (83-108) mmHg ABG HCO3 19 L (22-26) mmol/L ABG O2 Saturation 89 L (96-97) % ABG Base Excess -3.4 L (-2-2) Art Test Passed O2 Delivery Device Non rebr mask Sodium 135 (135-145) mmol/L Potassium 4.1 (3.5-5.3) mmol/L Chloride 103 (100-110) mmol/L Carbon Dioxide 24 (23-29) mmol/L BUN 11 (5-20) mg/dL Creatinine 0.6 (0.6-1.3) mg/dL Est Cr Clr Drug Dosing 126.70 mL/min Estimated GFR (MDRD) > 60 (>60) BUN/Creatinine Ratio 18.3 (9-20) Glucose 249 H (80-116) mg/dL POC Glucose (80-116) mg/dL Calcium 8.6 (8.6-10.2) mg/dL Total Bilirubin 0.8 (0.1-1.3) mg/dL AST 32 H (5-27) IU/L ALT 45 H D (14-26) IU/L Alkaline Phosphatase 90 (56-112) IU/L Total Protein 5.1 L (6.0-8.0) g/dL Albumin 2.3 L (3.5-5.2) g/dL Globulin 2.8 g/dL Albumin/Globulin Ratio 0.8 Jose Results Last 24 Hours: Microbiology 05/26/17 08:27 Aerobic Blood Culture - Preliminary Blood - Venous - Lab Draw NO GROWTH AFTER 1 DAY Anaerobic Blood Culture - Preliminary NO GROWTH AFTER 1 DAY 05/26/17 08:19 Aerobic Blood Culture - Preliminary Blood - Venous NO GROWTH AFTER 1 DAY Anaerobic Blood Culture - Preliminary NO GROWTH AFTER 1 DAY Med Orders - Current: Current Medications Albuterol/Ipratropium (Duoneb 3.0-0.5 Mg/3 Ml) 3 ml NEB QIDRT [facility] Last Admin: 05/27/17 07:11 Dose: 3 ml Albuterol/Ipratropium (Duoneb 3.0-0.5 Mg/3 Ml) 3 ml INH Q2H PRN PRN Reason: Shortness of Breath Baclofen (Lioresal) 10 mg PO BEDTIME [facility] Last Admin: 05/26/17 20:37 Dose: 10 mg Celecoxib (Celebrex) 200 mg PO BEDTIME [facility] Last Admin: 05/26/17 20:36 Dose: 200 mg Cyclobenzaprine HCl (Flexeril) 10 mg PO Q8H PRN PRN Reason: Pain Escitalopram Oxalate (Lexapro) 20 mg PO DAILY [facility] Last Admin: 05/27/17 08:34 Dose: 20 mg Hydromorphone HCl (Dilaudid) 1 mg IVPUSH Q4H PRN PRN Reason: Breakthrough Pain Last Admin: 05/26/17 20:39 Dose: 1 mg Hydroxyzine HCl (Atarax) 25 mg PO Q6H PRN PRN Reason: Anxiety Sodium Chloride (Normal Saline) 1,000 mls @ 125 mls/hr IV ASDIRECTED [facility] Last Admin: 05/27/17 03:26 Dose: 125 mls/hr Levofloxacin/Dextrose 750 mg/ (Premix) 150 mls @ 100 mls/hr IV Q24H [facility] Last Admin: 05/26/17 16:23 Dose: 100 mls/hr Insulin Aspart (Novolog) 0 unit SUBCUT TIDMEALS [facility] PRN Reason: Protocol Last Admin: 05/27/17 08:36 Dose: 6 unit Metformin HCl (Glucophage) 1,000 mg PO BID [facility] Last Admin: 05/26/17 08:45 Dose: 1,000 mg Methylprednisolone Sodium Succinate (Solu-Medrol) 125 mg IVPUSH Q12H [facility] Last Admin: 05/27/17 07:49 Dose: 125 mg Niacin (Niacin) 500 mg PO BEDTIME [facility] Last Admin: 05/26/17 20:37 Dose: 500 mg Nortriptyline HCl (Nortriptyline) 25 mg PO BEDTIME [facility] Last Admin: 05/26/17 20:37 Dose: 25 mg Pantoprazole Sodium (Protonix) 40 mg PO BEDTIME [facility] Last Admin: 05/26/17 20:38 Dose: 40 mg Quetiapine Fumarate (Seroquel) 300 mg PO BEDTIME [facility] Last Admin: 05/26/17 20:38 Dose: 300 mg Ropinirole HCl (Requip) 1 mg PO BEDTIME [facility] Last Admin: 05/26/17 20:38 Dose: 1 mg Simvastatin (Zocor) 20 mg PO BEDTIME [facility] Last Admin: 05/26/17 20:38 Dose: 20 mg Sitagliptin Phosphate (Januvia) 50 mg PO BID [facility] Last Admin: 05/27/17 08:34 Dose: 50 mg Sodium Chloride (Saline Flush) 10 ml FLUSH ASDIRECTED PRN PRN Reason: Keep Vein Open Tamsulosin HCl (Flomax) 0.4 mg PO BEDTIME [facility] Last Admin: 05/26/17 20:37 Dose: 0.4 mg Zolpidem Tartrate (Ambien) 10 mg PO BEDTIME [facility] Last Admin: 05/26/17 20:36 Dose: 10 mg Discontinued Medications Albuterol/Ipratropium (Duoneb 3.0-0.5 Mg/3 Ml) 3 ml NEB ONETIME ONE Stop: 05/25/17 13:47 Last Admin: 05/25/17 13:50 Dose: 3 ml Albuterol/Ipratropium (Duoneb 3.0-0.5 Mg/3 Ml) 3 ml INH ASDIRECTED PRN PRN Reason: Shortness of Breath Last Admin: 05/26/17 02:57 Dose: 3 ml Hydroxyzine HCl (Atarax) 25 mg PO TID PRN PRN Reason: Anxiety Last Admin: 05/26/17 16:10 Dose: 25 mg Levofloxacin/Dextrose 750 mg/ (Premix) 150 mls @ 100 mls/hr IV ONETIME ONE Stop: 05/25/17 16:56 Last Admin: 05/25/17 16:25 Dose: 100 mls/hr Aztreonam 2 gm/ Sodium (Chloride) 100 mls @ 200 mls/hr IV ONETIME ONE Stop: 05/25/17 18:29 Last Admin: 05/25/17 18:05 Dose: 200 mls/hr Tobramycin 200 mg/ Sodium (Chloride) 105 mls @ 100 mls/hr IV ONETIME ONE Stop: 05/25/17 20:02 Last Admin: 05/25/17 18:50 Dose: 100 mls/hr Iopamidol (Isovue-370 (76%)) 75 ml IV ASDIRECTED ONE Stop: 05/26/17 11:28 Last Admin: 05/26/17 11:56 Dose: 71 ml Hydroxyzine Pamoate (25mg) 25 mg PO TID PRN PRN Reason: Anxiety Prednisone (Prednisone) 60 mg PO ONETIME ONE Stop: 05/25/17 15:24 Last Admin: 05/25/17 17:02 Dose: 60 mg Ropinirole HCl (Requip) 1 mg PO BEDTIME [facility] Last Admin: 05/25/17 20:55 Dose: Not Given Ropinirole HCl (Requip) Confirm Administered Dose 1 mg .ROUTE .STK-MED ONE Stop: 05/25/17 20:39 Last Admin: 05/25/17 20:51 Dose: 1 mg Simvastatin (Zocor) 20 mg PO BEDTIME [facility] Last Admin: 05/25/17 20:53 Dose: 20 mg - Exam General: Alert, Oriented, Other (when I first saw him he was comfortable with his nonrebreather. Came back later in he was often impulsive and was very distress.) Lungs: Rales (Right base) Cardiovascular: Regular Rate, Regular Rhythm, No Murmurs, Tachycardia Skin: Warm, Dry, Intact Psy/Mental Status: Alert, Normal Affect, Normal Mood - Problem List & Annotations (1) Low back pain with left-sided sciatica SNOMED Code(s): 028818809 Code(s): M54.42 - LUMBAGO WITH SCIATICA, LEFT SIDE Status: Acute Current Visit: Yes (2) Unintended weight loss SNOMED Code(s): 324168713 Code(s): R63.4 - ABNORMAL WEIGHT LOSS Status: Acute Current Visit: Yes (3) Microscopic hematuria SNOMED Code(s): 451919988 Code(s): R31.29 - OTHER MICROSCOPIC HEMATURIA Status: Acute Current Visit : Yes (4) Elevated d-dimer SNOMED Code(s): 610820097 Code(s): R79.89 - OTHER SPECIFIED ABNORMAL FINDINGS OF BLOOD CHEMISTRY Status: Acute Current Visit: Yes (5) Acute exacerbation of COPD with asthma SNOMED Code(s): 802859271 Code(s): J44.1 - CHRONIC OBSTRUCTIVE PULMONARY DISEASE W (ACUTE) EXACERBATION ; J45.901 - UNSPECIFIED ASTHMA WITH (ACUTE) EXACERBATION Status: Acute Current Visit: Yes Annotation/Comment:: [facility]. (6) Community acquired pneumonia SNOMED Code(s): 500721570 Code(s): J18.9 - PNEUMONIA, UNSPECIFIED ORGANISM Status: Acute Current Visit: Yes Qualifiers: Laterality: right Lung location: unspecified part of lung Qualified Code( s): J18.9 - Pneumonia, unspecified organism Annotation/Comment:: Admission to [facility]. (7) Type 2 diabetes mellitus SNOMED Code(s): 12704888 Code(s): E11.9 - TYPE 2 DIABETES MELLITUS WITHOUT COMPLICATIONS Status: Acute Current Visit: Yes - Problem List Review Problem List Initiated/Reviewed/Updated: Yes - My Orders Last 24 Hours: My Active Orders 05/26/17 08:14 Accu Check [Blood Glucose Check, Bedside] [RC] QIDACANDBED 05/26/17 08:15 methylPREDNISolone Sod Succ [Solu-MEDROL] 125 mg IVPUSH Q12H Blood Culture x2 Reflex Set [OM.PC] Urgent 05/26/17 08:16 CULTURE SPUTUM + SMEAR [RM] Routine 05/26/17 08:19 CULTURE BLOOD [BC] Urgent 05/26/17 08:27 CULTURE BLOOD [BC] Urgent 05/26/17 09:02 Abdomen Pelvis w Cont [CT] Routine Ang Chest [CT] Routine 05/26/17 13:40 Lumbar Spine Comp wo Cont [MR] Routine 05/26/17 16:00 Levofloxacin/Dextrose 5%-Water [Levaquin in D5W 750 MG/150 ML] 750 mg Premix Bag 1 bag IV Q24H 05/27/17 08:07 LEGIONELLA,PNEUMO AG URINE [REF] Routine 05/27/17 08:40 HIV 1/2 AB RFLX TO SUPPL [REF] Routine 05/27/17 08:49 RT BiPAP/CPAP [RC] ASDIRECTED 05/27/17 09:08 Patient Status Manage Transfer [TRANSFER] Routine 05/27/17 09:11 hydrOXYzine HCl [Atarax] 25 mg PO Q6H PRN 05/27/17 16:00 ABG [BLOOD GAS ARTERIAL] [BG] Routine - Plan Plan:: 1. Transfer to ICU with BiPAP. Respiratory to titrate. 2. Discuss transfer the patient and he would like to stay here and was he gets worse. At this point I feel comfortable now that he is on the BiPAP. He states he was having a panic attack when he was short of breath. He takes Vistaril for that and has not been given to him. 3. I changes Vistaril 2 every 6 hours when necessary for anxiety. Was 3 times a day. 4. Check HIV, urine for Legionella/pneumonia 5. Routine ICU orders.
[2017-05-27] MEDS: HYDROmorphone 2 MG/ML SDV IVPUSH PRN ×2 (15:11→20:23)
[2017-05-27] MEDS: Levofloxacin/Dextrose 5%-Water 750 MG in Premix Bag 1 BAG IV SCH (16:09)
--- NOTE | 2017-05-27 16:25 | PCM.PN ---
- General Info Date of Service: 05/27/17 Admission Dx/Problem (Free Text): Patient states the BiPAP is working well for him. Keep his oxygen saturation. He does have some anxiety when he takes a Vistaril he feels better. The nurses have him on nonrebreather for a break from the BiPAP. Saturations around 85%. The nurses report when he is anxious his saturation was down and the Vistaril when it goes up. He states Dr. Willard gives him 25-50 mg Vistaril 3 times a day for his anxiety. - Patient Data Vitals - Most Recent: Last Vital Signs Temp 97.4 F 05/27/17 12:00 Pulse 113 H 05/27/17 15:28 Resp 28 H 05/27/17 12:00 BP 142/85 H 05/27/17 14:05 Pulse Ox 88 L 05/27/17 15:28 Weight - Most Recent: 198 lb 14.4 oz I&O - Last 24 Hours: Intake & Output 05/27/17 05/27/17 05/27/17 06:59 14:59 22:59 Intake Total 1090 1600 Output Total 600 Balance 1090 1000 Lab Results Last 24 Hours: Laboratory Results - last 24 hr 05/26/17 05/26/17 05/27/17 Range/Units 17:06 20:51 06:20 WBC 15.9 H (4.5-12.0) X10-3/uL RBC 3.75 L (4.30-5.75) x10(6)uL Hgb 11.7 (11.5-15.5) g/dL Hct 34.1 (30.0-51.3) % MCV 91.1 (80-96) fL MCH 31.2 (27.7-33.6) pg MCHC 34.3 (32.2-35.4) g/dL RDW 14.5 (11.5-15.5) % Plt Count 189 (125-369) X10(3)uL MPV 7.0 L (7.4-10.4) fL Add Manual Diff Yes Neutrophils % (Manual) 80 (46-82) % Band Neutrophils % 5 (0-6) % Lymphocytes % (Manual) 10 L (13-37) % Monocytes % (Manual) 5 (4-12) % ABG pH (7.35-7.45) ABG pCO2 (35-45) mmHg ABG pO2 (83-108) mmHg ABG HCO3 (22-26) mmol/L ABG O2 Saturation (96-97) % ABG Base Excess (-2-2) Art Test O2 Delivery Device Sodium (135-145) mmol/L Potassium (3.5-5.3) mmol/L Chloride (100-110) mmol/L Carbon Dioxide (23-29) mmol/L BUN (5-20) mg/dL Creatinine (0.6-1.3) mg/dL Est Cr Clr Drug Dosing mL/min Estimated GFR (MDRD) (>60) BUN/Creatinine Ratio (9-20) Glucose (80-116) mg/dL POC Glucose 274 H 183 H D (80-116) mg/dL Calcium (8.6-10.2) mg/dL Total Bilirubin (0.1-1.3) mg/dL AST (5-27) IU/L ALT (14-26) IU/L Alkaline Phosphatase (56-112) IU/L Total Protein (6.0-8.0) g/dL Albumin (3.5-5.2) g/dL Globulin g/dL Albumin/Globulin Ratio 05/27/17 05/27/17 05/27/17 Range/Units 06:20 08:25 15:20 WBC (4.5-12.0) X10-3/uL RBC (4.30-5.75) x10(6)uL Hgb (11.5-15.5) g/dL Hct (30.0-51.3) % MCV (80-96) fL MCH (27.7-33.6) pg MCHC (32.2-35.4) g/dL RDW (11.5-15.5) % Plt Count (125-369) X10(3)uL MPV (7.4-10.4) fL Add Manual Diff Neutrophils % (Manual) (46-82) % Band Neutrophils % (0-6) % Lymphocytes % (Manual) (13-37) % Monocytes % (Manual) (4-12) % ABG pH 7.43 7.44 (7.35-7.45) ABG pCO2 30 L 33 L (35-45) mmHg ABG pO2 53 L 86 (83-108) mmHg ABG HCO3 19 L 22 (22-26) mmol/L ABG O2 Saturation 89 L 97 (96-97) % ABG Base Excess -3.4 L -1.1 (-2-2) Art Test Passed passed O2 Delivery Device Non rebr mask Bipap Sodium 135 (135-145) mmol/L Potassium 4.1 (3.5-5.3) mmol/L Chloride 103 (100-110) mmol/L Carbon Dioxide 24 (23-29) mmol/L BUN 11 (5-20) mg/dL Creatinine 0.6 (0.6-1.3) mg/dL Est Cr Clr Drug Dosing 126.70 mL/min Estimated GFR (MDRD) > 60 (>60) BUN/Creatinine Ratio 18.3 (9-20) Glucose 249 H (80-116) mg/dL POC Glucose (80-116) mg/dL Calcium 8.6 (8.6-10.2) mg/dL Total Bilirubin 0.8 (0.1-1.3) mg/dL AST 32 H (5-27) IU/L ALT 45 H D (14-26) IU/L Alkaline Phosphatase 90 (56-112) IU/L Total Protein 5.1 L (6.0-8.0) g/dL Albumin 2.3 L (3.5-5.2) g/dL Globulin 2.8 g/dL Albumin/Globulin Ratio 0.8 Jose Results Last 24 Hours: Microbiology 05/26/17 08:27 Aerobic Blood Culture - Preliminary Blood - Venous - Lab Draw NO GROWTH AFTER 1 DAY Anaerobic Blood Culture - Preliminary NO GROWTH AFTER 1 DAY 05/26/17 08:19 Aerobic Blood Culture - Preliminary Blood - Venous NO GROWTH AFTER 1 DAY Anaerobic Blood Culture - Preliminary NO GROWTH AFTER 1 DAY Med Orders - Current: Current Medications Albuterol/Ipratropium (Duoneb 3.0-0.5 Mg/3 Ml) 3 ml NEB QIDRT [facility] Last Admin: 05/27/17 15:28 Dose: 3 ml Albuterol/Ipratropium (Duoneb 3.0-0.5 Mg/3 Ml) 3 ml INH Q2H PRN PRN Reason: Shortness of Breath Baclofen (Lioresal) 10 mg PO BEDTIME [facility] Last Admin: 05/26/17 20:37 Dose: 10 mg Celecoxib (Celebrex) 200 mg PO BEDTIME [facility] Last Admin: 05/26/17 20:36 Dose: 200 mg Cyclobenzaprine HCl (Flexeril) 10 mg PO Q8H PRN PRN Reason: Pain Escitalopram Oxalate (Lexapro) 20 mg PO DAILY [facility] Last Admin: 05/27/17 08:34 Dose: 20 mg Hydromorphone HCl (Dilaudid) 1 mg IVPUSH Q4H PRN PRN Reason: Breakthrough Pain Last Admin: 05/27/17 15:11 Dose: 1 mg Sodium Chloride (Normal Saline) 1,000 mls @ 125 mls/hr IV ASDIRECTED [facility] Last Admin: 05/27/17 11:13 Dose: 125 mls/hr Levofloxacin/Dextrose 750 mg/ (Premix) 150 mls @ 100 mls/hr IV Q24H [facility] Last Admin: 05/27/17 16:09 Dose: 100 mls/hr Insulin Aspart (Novolog) 0 unit SUBCUT TIDMEALS [facility] PRN Reason: Protocol Last Admin: 05/27/17 13:18 Dose: 9 unit Niacin (Niacin) 500 mg PO BEDTIME [facility] Last Admin: 05/26/17 20:37 Dose: 500 mg Nortriptyline HCl (Nortriptyline) 25 mg PO BEDTIME [facility] Last Admin: 05/26/17 20:37 Dose: 25 mg Pantoprazole Sodium (Protonix) 40 mg PO BEDTIME [facility] Last Admin: 05/26/17 20:38 Dose: 40 mg Quetiapine Fumarate (Seroquel) 300 mg PO BEDTIME [facility] Last Admin: 05/26/17 20:38 Dose: 300 mg Ropinirole HCl (Requip) 1 mg PO BEDTIME [facility] Last Admin: 05/26/17 20:38 Dose: 1 mg Simvastatin (Zocor) 20 mg PO BEDTIME [facility] Last Admin: 05/26/17 20:38 Dose: 20 mg Sitagliptin Phosphate (Januvia) 50 mg PO BID [facility] Last Admin: 05/27/17 08:34 Dose: 50 mg Sodium Chloride (Saline Flush) 10 ml FLUSH ASDIRECTED PRN PRN Reason: Keep Vein Open Tamsulosin HCl (Flomax) 0.4 mg PO BEDTIME [facility] Last Admin: 05/26/17 20:37 Dose: 0.4 mg Zolpidem Tartrate (Ambien) 10 mg PO BEDTIME [facility] Last Admin: 05/26/17 20:36 Dose: 10 mg Discontinued Medications Albuterol/Ipratropium (Duoneb 3.0-0.5 Mg/3 Ml) 3 ml NEB ONETIME ONE Stop: 05/25/17 13:47 Last Admin: 05/25/17 13:50 Dose: 3 ml Albuterol/Ipratropium (Duoneb 3.0-0.5 Mg/3 Ml) 3 ml INH ASDIRECTED PRN PRN Reason: Shortness of Breath Last Admin: 05/26/17 02:57 Dose: 3 ml Hydroxyzine HCl (Atarax) 25 mg PO TID PRN PRN Reason: Anxiety Last Admin: 05/26/17 16:10 Dose: 25 mg Hydroxyzine HCl (Atarax) 25 mg PO Q6H PRN PRN Reason: Anxiety Last Admin: 05/27/17 15:09 Dose: 25 mg Levofloxacin/Dextrose 750 mg/ (Premix) 150 mls @ 100 mls/hr IV ONETIME ONE Stop: 05/25/17 16:56 Last Admin: 05/25/17 16:25 Dose: 100 mls/hr Aztreonam 2 gm/ Sodium (Chloride) 100 mls @ 200 mls/hr IV ONETIME ONE Stop: 05/25/17 18:29 Last Admin: 05/25/17 18:05 Dose: 200 mls/hr Tobramycin 200 mg/ Sodium (Chloride) 105 mls @ 100 mls/hr IV ONETIME ONE Stop: 05/25/17 20:02 Last Admin: 05/25/17 18:50 Dose: 100 mls/hr Iopamidol (Isovue-370 (76%)) 75 ml IV ASDIRECTED ONE Stop: 05/26/17 11:28 Last Admin: 05/26/17 11:56 Dose: 71 ml Metformin HCl (Glucophage) 1,000 mg PO BID [facility] Last Admin: 05/26/17 08:45 Dose: 1,000 mg Methylprednisolone Sodium Succinate (Solu-Medrol) 125 mg IVPUSH Q12H [facility] Last Admin: 05/27/17 07:49 Dose: 125 mg Hydroxyzine Pamoate (25mg) 25 mg PO TID PRN PRN Reason: Anxiety Prednisone (Prednisone) 60 mg PO ONETIME ONE Stop: 05/25/17 15:24 Last Admin: 05/25/17 17:02 Dose: 60 mg Ropinirole HCl (Requip) 1 mg PO BEDTIME [facility] Last Admin: 05/25/17 20:55 Dose: Not Given Ropinirole HCl (Requip) Confirm Administered Dose 1 mg .ROUTE .STK-MED ONE Stop: 05/25/17 20:39 Last Admin: 05/25/17 20:51 Dose: 1 mg Simvastatin (Zocor) 20 mg PO BEDTIME [facility] Last Admin: 05/25/17 20:53 Dose: 20 mg - Exam General: Alert, Oriented, Cooperative, Mild Distress Lungs: Clear to Auscultation, Other (Mild tachypnea). No: Crackles, Rales, Rhonchi, Rub Extremities: No Pedal Edema - Problem List & Annotations (1) Low back pain with left-sided sciatica SNOMED Code(s): 697207783 Code(s): M54.42 - LUMBAGO WITH SCIATICA, LEFT SIDE Status: Acute Current Visit: No (2) Unintended weight loss SNOMED Code(s): 868973516 Code(s): R63.4 - ABNORMAL WEIGHT LOSS Status: Acute Current Visit: No (3) Microscopic hematuria SNOMED Code(s): 556404739 Code(s): R31.29 - OTHER MICROSCOPIC HEMATURIA Status: Acute Current Visit : No (4) Elevated d-dimer SNOMED Code(s): 218118866 Code(s): R79.89 - OTHER SPECIFIED ABNORMAL FINDINGS OF BLOOD CHEMISTRY Status: Acute Current Visit: Yes (5) Acute exacerbation of COPD with asthma SNOMED Code(s): 480107846 Code(s): J44.1 - CHRONIC OBSTRUCTIVE PULMONARY DISEASE W (ACUTE) EXACERBATION ; J45.901 - UNSPECIFIED ASTHMA WITH (ACUTE) EXACERBATION Status: Acute Current Visit: Yes Annotation/Comment:: Admission to [facility]. (6) Community acquired pneumonia SNOMED Code(s): 557569592 Code(s): J18.9 - PNEUMONIA, UNSPECIFIED ORGANISM Status: Acute Current Visit: Yes Qualifiers: Laterality: right Lung location: unspecified part of lung Qualified Code( s): J18.9 - Pneumonia, unspecified organism Annotation/Comment:: Admission to [facility]. (7) Type 2 diabetes mellitus SNOMED Code(s): 22482782 Code(s): E11.9 - TYPE 2 DIABETES MELLITUS WITHOUT COMPLICATIONS Status: Acute Current Visit: Yes (8) Anxiety SNOMED Code(s): 35911102 Code(s): F41.9 - ANXIETY DISORDER, UNSPECIFIED Status: Acute Current Visit: Yes - Problem List Review Problem List Initiated/Reviewed/Updated: Yes - My Orders Last 24 Hours: My Active Orders 05/26/17 16:00 Levofloxacin/Dextrose 5%-Water [Levaquin in D5W 750 MG/150 ML] 750 mg Premix Bag 1 bag IV Q24H 05/27/17 08:40 HIV 1/2 AB RFLX TO SUPPL [REF] Routine 05/27/17 08:49 RT BiPAP/CPAP [RC] ASDIRECTED 05/27/17 10:42 LEGIONELLA,PNEUMO AG URINE [REF] Routine 05/27/17 16:30 hydrOXYzine HCl [Atarax] 50 mg PO Q6H methylPREDNISolone Sod Succ [Solu-MEDROL] 125 mg IVPUSH Q8H 05/28/17 05:11 CXR [Chest 2V] [CR] AM CBC WITH AUTO DIFF [HEME] AM COMPREHENSIVE METABOLIC PN,CMP [CHEM] AM - Plan Plan:: 1. Continue BiPAP. ABGs checked and reviewed. 2. In the a.m.-chest x-ray, chem 12, CBC, ABGs 3. Schedule hydroxyzine 50 mg every 6 hours for his anxiety.
[2017-05-27] MEDS ORDERED: hydrOXYzine HCl 25 MG Tab PO SCH (16:30)
[2017-05-27] MEDS: Zolpidem 5 MG Tab PO SCH (21:13)
[2017-05-27] MEDS: Niacin 500 MG Cap.ER PO SCH (21:14)
[2017-05-27] MEDS: Celecoxib 200 MG Cap PO SCH (21:14)
[2017-05-27] MEDS: Tamsulosin 0.4 MG Cap.ER PO SCH (21:14)
[2017-05-27] MEDS: Baclofen 10 MG Tab PO SCH (21:14)
[2017-05-27] MEDS: Nortriptyline 25 MG Cap PO SCH (21:15)
[2017-05-27] MEDS: QUEtiapine 100 MG Tab PO SCH (21:15)
[2017-05-27] MEDS: rOPINIRole 1 MG Tab PO SCH (21:15)
[2017-05-27] MEDS: Simvastatin 20 MG Tab PO SCH (21:15)
[2017-05-27] MEDS: Pantoprazole 40 MG Tab.CR PO SCH (21:15)
[2017-05-28] MEDS: methylPREDNISolone Sodium Succinate 125 MG/2 ML SDV IVPUSH SCH ×3 (00:47→16:32)
[2017-05-28] MEDS: Sodium Chloride 0.9% 1,000 ML IV SCH ×2 (04:50→13:51)
[2017-05-28] MEDS: Albuterol/Ipratropium 3.0-0.5 MG/3 ML Neb Soln NEB SCH ×4 (07:26→21:15)
[2017-05-28] MEDS: hydrOXYzine HCl 25 MG Tab PO PRN ×2 (08:08→14:56)
[2017-05-28] MEDS: Escitalopram 20 MG Tab PO SCH (08:09)
[2017-05-28] MEDS: Insulin Aspart 100 Units/ML 3 ML Pen SUBCUT SCH ×3 (08:14→17:26)
--- NOTE | 2017-05-28 09:43 | PCM.PN ---
- General Info Date of Service: 05/28/17 Admission Dx/Problem (Free Text): Critical care note-patient feels a little bit better today. He thinks he can breathe better and with hydroxyzine he is less anxious. Denies coughing, fevers , chills or leg swelling. The nurses report that he slept well last night. He is down from 100% to 60% on BiPAP and maintaining sats 95%. When he gets on nonrebreather he drops low 90s to mid 80s. Patient denies exposure to MRSA. Patient denies history of alternative lifestyle or history of IV drug use. He states he was checked for HIV in the it was negative. - Patient Data Vitals - Most Recent: Last Vital Signs Temp 97.6 F 05/28/17 07:50 Pulse 107 H 05/28/17 07:50 Resp 24 H 05/28/17 07:50 BP 137/88 05/28/17 07:50 Pulse Ox 92 L 05/28/17 07:50 Weight - Most Recent: 195 lb 15.855 oz I&O - Last 24 Hours: Intake & Output 05/27/17 05/28/17 05/28/17 22:59 06:59 14:59 Intake Total 823 940 Output Total 400 Balance 423 940 Lab Results Last 24 Hours: Laboratory Results - last 24 hr 05/27/17 05/27/17 05/27/17 Range/Units 11:37 15:20 18:07 WBC (4.5-12.0) X10-3/uL RBC (4.30-5.75) x10(6)uL Hgb (11.5-15.5) g/dL Hct (30.0-51.3) % MCV (80-96) fL MCH (27.7-33.6) pg MCHC (32.2-35.4) g/dL RDW (11.5-15.5) % Plt Count (125-369) X10(3)uL MPV (7.4-10.4) fL Add Manual Diff Neutrophils % (Manual) (46-82) % Band Neutrophils % (0-6) % Lymphocytes % (Manual) (13-37) % Monocytes % (Manual) (4-12) % ABG pH 7.44 (7.35-7.45) ABG pCO2 33 L (35-45) mmHg ABG pO2 86 (83-108) mmHg ABG HCO3 22 (22-26) mmol/L ABG O2 Saturation 97 (96-97) % ABG Base Excess -1.1 (-2-2) Art Test passed O2 Delivery Device Bipap Sodium (135-145) mmol/L Potassium (3.5-5.3) mmol/L Chloride (100-110) mmol/L Carbon Dioxide (23-29) mmol/L BUN (5-20) mg/dL Creatinine (0.6-1.3) mg/dL Est Cr Clr Drug Dosing mL/min Estimated GFR (MDRD) (>60) BUN/Creatinine Ratio (9-20) Glucose (80-116) mg/dL POC Glucose 269 H D 264 H (80-116) mg/dL Calcium (8.6-10.2) mg/dL Total Bilirubin (0.1-1.3) mg/dL AST (5-27) IU/L ALT (14-26) IU/L Alkaline Phosphatase (56-112) IU/L Total Protein (6.0-8.0) g/dL Albumin (3.5-5.2) g/dL Globulin g/dL Albumin/Globulin Ratio 05/27/17 05/28/17 05/28/17 Range/Units 21:19 06:10 06:10 WBC 15.6 H (4.5-12.0) X10-3/uL RBC 3.76 L (4.30-5.75) x10(6)uL Hgb 11.6 (11.5-15.5) g/dL Hct 34.0 (30.0-51.3) % MCV 90.5 (80-96) fL MCH 30.9 (27.7-33.6) pg MCHC 34.1 (32.2-35.4) g/dL RDW 14.5 (11.5-15.5) % Plt Count 168 (125-369) X10(3)uL MPV 6.5 L (7.4-10.4) fL Add Manual Diff Yes Neutrophils % (Manual) 83 H (46-82) % Band Neutrophils % 3 (0-6) % Lymphocytes % (Manual) 11 L (13-37) % Monocytes % (Manual) 3 L (4-12) % ABG pH (7.35-7.45) ABG pCO2 (35-45) mmHg ABG pO2 (83-108) mmHg ABG HCO3 (22-26) mmol/L ABG O2 Saturation (96-97) % ABG Base Excess (-2-2) Art Test O2 Delivery Device Sodium 134 L (135-145) mmol/L Potassium 4.0 (3.5-5.3) mmol/L Chloride 104 (100-110) mmol/L Carbon Dioxide 24 (23-29) mmol/L BUN 12 (5-20) mg/dL Creatinine 0.5 L (0.6-1.3) mg/dL Est Cr Clr Drug Dosing 152.04 mL/min Estimated GFR (MDRD) > 60 (>60) BUN/Creatinine Ratio 24.0 H (9-20) Glucose 245 H (80-116) mg/dL POC Glucose 188 H (80-116) mg/dL Calcium 8.5 L (8.6-10.2) mg/dL Total Bilirubin 0.6 (0.1-1.3) mg/dL AST 23 D (5-27) IU/L ALT 47 H (14-26) IU/L Alkaline Phosphatase 127 H (56-112) IU/L Total Protein 5.1 L (6.0-8.0) g/dL Albumin 2.3 L (3.5-5.2) g/dL Globulin 2.8 g/dL Albumin/Globulin Ratio 0.8 09//17 Range/Units 07:15 WBC (4.5-12.0) X10-3/uL RBC (4.30-5.75) x10(6)uL Hgb (11.5-15.5) g/dL Hct (30.0-51.3) % MCV (80-96) fL MCH (27.7-33.6) pg MCHC (32.2-35.4) g/dL RDW (11.5-15.5) % Plt Count (125-369) X10(3)uL MPV (7.4-10.4) fL Add Manual Diff Neutrophils % (Manual) (46-82) % Band Neutrophils % (0-6) % Lymphocytes % (Manual) (13-37) % Monocytes % (Manual) (4-12) % ABG pH 7.48 H (7.35-7.45) ABG pCO2 32 L (35-45) mmHg ABG pO2 73 L (83-108) mmHg ABG HCO3 23 (22-26) mmol/L ABG O2 Saturation 96 (96-97) % ABG Base Excess 0.6 (-2-2) Art Test passed O2 Delivery Device Bipap Sodium (135-145) mmol/L Potassium (3.5-5.3) mmol/L Chloride (100-110) mmol/L Carbon Dioxide (23-29) mmol/L BUN (5-20) mg/dL Creatinine (0.6-1.3) mg/dL Est Cr Clr Drug Dosing mL/min Estimated GFR (MDRD) (>60) BUN/Creatinine Ratio (9-20) Glucose (80-116) mg/dL POC Glucose (80-116) mg/dL Calcium (8.6-10.2) mg/dL Total Bilirubin (0.1-1.3) mg/dL AST (5-27) IU/L ALT (14-26) IU/L Alkaline Phosphatase (56-112) IU/L Total Protein (6.0-8.0) g/dL Albumin (3.5-5.2) g/dL Globulin g/dL Albumin/Globulin Ratio Jose Results Last 24 Hours: Microbiology 05/26/17 08:27 Aerobic Blood Culture - Preliminary Blood - Venous - Lab Draw NO GROWTH AFTER 2 DAYS Anaerobic Blood Culture - Preliminary NO GROWTH AFTER 2 DAYS 05/26/17 08:19 Aerobic Blood Culture - Preliminary Blood - Venous NO GROWTH AFTER 2 DAYS Anaerobic Blood Culture - Preliminary NO GROWTH AFTER 2 DAYS Med Orders - Current: Current Medications Albuterol/Ipratropium (Duoneb 3.0-0.5 Mg/3 Ml) 3 ml NEB QIDRT [facility] Last Admin: 05/28/17 07:26 Dose: 3 ml Albuterol/Ipratropium (Duoneb 3.0-0.5 Mg/3 Ml) 3 ml INH Q2H PRN PRN Reason: Shortness of Breath Baclofen (Lioresal) 10 mg PO BEDTIME [facility] Last Admin: 05/27/17 21:14 Dose: 10 mg Celecoxib (Celebrex) 200 mg PO BEDTIME [facility] Last Admin: 05/27/17 21:14 Dose: 200 mg Cyclobenzaprine HCl (Flexeril) 10 mg PO Q8H PRN PRN Reason: Pain Escitalopram Oxalate (Lexapro) 20 mg PO DAILY [facility] Last Admin: 05/28/17 08:09 Dose: 20 mg Hydromorphone HCl (Dilaudid) 1 mg IVPUSH Q4H PRN PRN Reason: Breakthrough Pain Last Admin: 05/27/17 20:23 Dose: 1 mg Hydroxyzine HCl (Atarax) 50 mg PO Q6H PRN PRN Reason: Anxiety Last Admin: 05/28/17 08:08 Dose: 50 mg Sodium Chloride (Normal Saline) 1,000 mls @ 125 mls/hr IV ASDIRECTED [facility] Last Admin: 05/28/17 04:50 Dose: 125 mls/hr Levofloxacin/Dextrose 750 mg/ (Premix) 150 mls @ 100 mls/hr IV Q24H [facility] Last Admin: 05/27/17 16:09 Dose: 100 mls/hr Insulin Aspart (Novolog) 0 unit SUBCUT TIDMEALS [facility] PRN Reason: Protocol Last Admin: 05/28/17 08:14 Dose: 6 unit Methylprednisolone Sodium Succinate (Solu-Medrol) 125 mg IVPUSH Q8H [facility] Last Admin: 05/28/17 08:09 Dose: 125 mg Niacin (Niacin) 500 mg PO BEDTIME [facility] Last Admin: 05/27/17 21:14 Dose: 500 mg Nortriptyline HCl (Nortriptyline) 25 mg PO BEDTIME [facility] Last Admin: 05/27/17 21:15 Dose: 25 mg Pantoprazole Sodium (Protonix) 40 mg PO BEDTIME [facility] Last Admin: 05/27/17 21:15 Dose: 40 mg Quetiapine Fumarate (Seroquel) 300 mg PO BEDTIME [facility] Last Admin: 05/27/17 21:15 Dose: 300 mg Ropinirole HCl (Requip) 1 mg PO BEDTIME [facility] Last Admin: 05/27/17 21:15 Dose: 1 mg Simvastatin (Zocor) 20 mg PO BEDTIME [facility] Last Admin: 05/27/17 21:15 Dose: 20 mg Sitagliptin Phosphate (Januvia) 50 mg PO BID [facility] Last Admin: 05/28/17 08:09 Dose: 50 mg Sodium Chloride (Saline Flush) 10 ml FLUSH ASDIRECTED PRN PRN Reason: Keep Vein Open Tamsulosin HCl (Flomax) 0.4 mg PO BEDTIME [facility] Last Admin: 05/27/17 21:14 Dose: 0.4 mg Zolpidem Tartrate (Ambien) 10 mg PO BEDTIME [facility] Last Admin: 05/27/17 21:13 Dose: 10 mg Discontinued Medications Albuterol/Ipratropium (Duoneb 3.0-0.5 Mg/3 Ml) 3 ml NEB ONETIME ONE Stop: 05/25/17 13:47 Last Admin: 05/25/17 13:50 Dose: 3 ml Albuterol/Ipratropium (Duoneb 3.0-0.5 Mg/3 Ml) 3 ml INH ASDIRECTED PRN PRN Reason: Shortness of Breath Last Admin: 05/26/17 02:57 Dose: 3 ml Hydroxyzine HCl (Atarax) 25 mg PO TID PRN PRN Reason: Anxiety Last Admin: 05/26/17 16:10 Dose: 25 mg Hydroxyzine HCl (Atarax) 25 mg PO Q6H PRN PRN Reason: Anxiety Last Admin: 05/27/17 15:09 Dose: 25 mg Hydroxyzine HCl (Atarax) 50 mg PO Q6H [facility] Last Admin: 05/27/17 16:57 Dose: Not Given Levofloxacin/Dextrose 750 mg/ (Premix) 150 mls @ 100 mls/hr IV ONETIME ONE Stop: 05/25/17 16:56 Last Admin: 05/25/17 16:25 Dose: 100 mls/hr Aztreonam 2 gm/ Sodium (Chloride) 100 mls @ 200 mls/hr IV ONETIME ONE Stop: 05/25/17 18:29 Last Admin: 05/25/17 18:05 Dose: 200 mls/hr Tobramycin 200 mg/ Sodium (Chloride) 105 mls @ 100 mls/hr IV ONETIME ONE Stop: 05/25/17 20:02 Last Admin: 05/25/17 18:50 Dose: 100 mls/hr Iopamidol (Isovue-370 (76%)) 75 ml IV ASDIRECTED ONE Stop: 05/26/17 11:28 Last Admin: 05/26/17 11:56 Dose: 71 ml Metformin HCl (Glucophage) 1,000 mg PO BID [facility] Last Admin: 05/26/17 08:45 Dose: 1,000 mg Methylprednisolone Sodium Succinate (Solu-Medrol) 125 mg IVPUSH Q12H [facility] Last Admin: 05/27/17 07:49 Dose: 125 mg Hydroxyzine Pamoate (25mg) 25 mg PO TID PRN PRN Reason: Anxiety Prednisone (Prednisone) 60 mg PO ONETIME ONE Stop: 05/25/17 15:24 Last Admin: 05/25/17 17:02 Dose: 60 mg Ropinirole HCl (Requip) 1 mg PO BEDTIME [facility] Last Admin: 05/25/17 20:55 Dose: Not Given Ropinirole HCl (Requip) Confirm Administered Dose 1 mg .ROUTE .STK-MED ONE Stop: 05/25/17 20:39 Last Admin: 05/25/17 20:51 Dose: 1 mg Simvastatin (Zocor) 20 mg PO BEDTIME [facility] Last Admin: 05/25/17 20:53 Dose: 20 mg - Exam General: Alert, Oriented, Cooperative Lungs: Normal Respiratory Effort, Crackles (Fine at the bases bilaterally) Cardiovascular: Regular Rate, Regular Rhythm, No Murmurs, Tachycardia Extremities: No Pedal Edema - Problem List & Annotations (1) Low back pain with left-sided sciatica SNOMED Code(s): 652049988 Code(s): M54.42 - LUMBAGO WITH SCIATICA, LEFT SIDE Status: Acute Current Visit: No (2) Unintended weight loss SNOMED Code(s): 046168049 Code(s): R63.4 - ABNORMAL WEIGHT LOSS Status: Acute Current Visit: No (3) Microscopic hematuria SNOMED Code(s): 053916082 Code(s): R31.29 - OTHER MICROSCOPIC HEMATURIA Status: Acute Current Visit : No (4) Elevated d-dimer SNOMED Code(s): 792995338 Code(s): R79.89 - OTHER SPECIFIED ABNORMAL FINDINGS OF BLOOD CHEMISTRY Status: Acute Current Visit: Yes (5) Acute exacerbation of COPD with asthma SNOMED Code(s): 859027155 Code(s): J44.1 - CHRONIC OBSTRUCTIVE PULMONARY DISEASE W (ACUTE) EXACERBATION ; J45.901 - UNSPECIFIED ASTHMA WITH (ACUTE) EXACERBATION Status: Acute Current Visit: Yes Annotation/Comment:: Admission to [facility]. (6) Community acquired pneumonia SNOMED Code(s): 908285930 Code(s): J18.9 - PNEUMONIA, UNSPECIFIED ORGANISM Status: Acute Current Visit: Yes Qualifiers: Laterality: right Lung location: unspecified part of lung Qualified Code( s): J18.9 - Pneumonia, unspecified organism Annotation/Comment:: Admission to [facility]. (7) Type 2 diabetes mellitus SNOMED Code(s): 39061070 Code(s): E11.9 - TYPE 2 DIABETES MELLITUS WITHOUT COMPLICATIONS Status: Acute Current Visit: Yes (8) Anxiety SNOMED Code(s): 71562868 Code(s): F41.9 - ANXIETY DISORDER, UNSPECIFIED Status: Acute Current Visit: Yes (9) Cardiomegaly SNOMED Code(s): 1146263 Code(s): I51.7 - CARDIOMEGALY Status: Acute Current Visit: Yes - Problem List Review Problem List Initiated/Reviewed/Updated: Yes - My Orders Last 24 Hours: My Active Orders 05/27/17 08:49 RT BiPAP/CPAP [RC] 00,02,04,06,08,10,12,14,16,18,20,22 05/27/17 10:42 LEGIONELLA,PNEUMO AG URINE [REF] Routine 05/27/17 16:30 methylPREDNISolone Sod Succ [Solu-MEDROL] 125 mg IVPUSH Q8H 05/27/17 22:06 hydrOXYzine HCl [Atarax] 50 mg PO Q6H PRN 05/28/17 05:11 CXR [Chest 2V] [CR] AM 05/28/17 06:10 B-TYPE NATRIURETIC PEPTIDE,BNP [CHEM] Routine 05/28/17 09:45 cefTRIAXone [Rocephin] 1,000 mg Sodium Chloride 0.9% [Normal Saline] 50 ml IV Q24H 05/28/17 16:00 ABG [BLOOD GAS ARTERIAL] [BG] Routine - Plan Plan:: 1. Continue BiPAP. ABGs checked and reviewed recheck at 4 PM. 2. Continue BiPAP and wean to keep sats greater than 90%. 3. Add Rocephin 1 g. Patient has tolerated cephalexin the past. 4. Review the chest x-ray and radiology states there is bilateral interstitial opacities are persistent consistent with pneumonitis or edema. 5. Check BMP. On admission was normal. 6. Patient has cardiomegaly
[2017-05-28] MEDS: cefTRIAXone 1,000 MG in Sodium Chloride 0.9% 50 ML IV SCH (09:54)
[2017-05-28] MEDS: HYDROmorphone 2 MG/ML SDV IVPUSH PRN (12:42)
[2017-05-28] MEDS: Levofloxacin/Dextrose 5%-Water 750 MG in Premix Bag 1 BAG IV SCH (16:32)
[2017-05-28] MEDS: LORazepam 2 MG/ML MDV IVPUSH PRN (18:11)
[2017-05-28] MEDS: Sodium Chloride 0.45% with KCl 1,000 ML IV SCH (19:41)
[2017-05-28] MEDS: HYDROcodone/Ibuprofen 7.5-200 MG Tab PO PRN (19:46)
[2017-05-28] MEDS: Zolpidem 5 MG Tab PO SCH (21:03)
[2017-05-28] MEDS: Tamsulosin 0.4 MG Cap.ER PO SCH (21:03)
[2017-05-28] MEDS: Celecoxib 200 MG Cap PO SCH (21:03)
[2017-05-28] MEDS: Nortriptyline 25 MG Cap PO SCH (21:04)
[2017-05-28] MEDS: Pantoprazole 40 MG Tab.CR PO SCH (21:04)
[2017-05-28] MEDS: Baclofen 10 MG Tab PO SCH (21:04)
[2017-05-28] MEDS: Niacin 500 MG Cap.ER PO SCH (21:04)
[2017-05-28] MEDS: rOPINIRole 1 MG Tab PO SCH (21:04)
[2017-05-28] MEDS: QUEtiapine 100 MG Tab PO SCH (21:05)
[2017-05-28] MEDS: Simvastatin 20 MG Tab PO SCH (21:05)
[2017-05-29] MEDS: methylPREDNISolone Sodium Succinate 125 MG/2 ML SDV IVPUSH SCH ×2 (00:39→08:53)
[2017-05-29] MEDS: Sodium Chloride 0.45% with KCl 1,000 ML IV SCH (03:46)
[2017-05-29] MEDS: LORazepam 2 MG/ML MDV IVPUSH PRN ×2 (07:28→11:37)
[2017-05-29] MEDS: Albuterol/Ipratropium 3.0-0.5 MG/3 ML Neb Soln NEB SCH ×2 (07:31→11:00)
[2017-05-29] MEDS: Insulin Aspart 100 Units/ML 3 ML Pen SUBCUT SCH ×2 (08:52→12:01)
[2017-05-29] MEDS: hydrOXYzine HCl 25 MG Tab PO PRN ×2 (08:53→14:43)
[2017-05-29] MEDS: Escitalopram 20 MG Tab PO SCH (08:54)
[2017-05-29] MEDS: cefTRIAXone 1,000 MG in Sodium Chloride 0.9% 50 ML IV SCH (09:15)
[2017-05-29] MEDS: HYDROcodone/Ibuprofen 7.5-200 MG Tab PO PRN (11:37)
--- NOTE | 2017-05-29 12:00 | PCM.DCSUM1 ---
Discharge Summary - Hospital Course Free Text/Narrative:: Hospital course-patient was admitted and placed on O2 and Levaquin. He required so much O2 that I discussed with him about transfer and needing BiPAP. He did not want to transfer. So put him on BiPAP. I did a d-dimer when I took over his care and his elevated proceeded to a CT which showed no PE. Showed pneumonia versus a hemorrhage. Patient was not coughing up blood. Since he needed BiPAP use which over to ICU. Blood gases were done and he was hypoxic and did well on the BiPAP. When we try to wean him he would not wean. Added on Rocephin after a transfer from the ICU according to protocol. Every Day the patient seemed to be a little bit better but we cannot get him off the BiPAP. Every day talked about transfer but he wanted to stay here. I was comfortable with him because he was not getting worse. Blood gases looked okay except his O2 which was good on the BiPAP. Rechecked a chest x-ray and it showed diffuse pneumonitis versus edema. His BMP was in the teens and then a little over 100. Again like 5 pounds when he was here. He was able to eat. Patient lots of anxiety was treated initially with hydroxyzine which she takes [id number]. Switched to lorazepam because anxiety made his breathing worse. He also has a chronic back problem. His primary doctor had ordered a MRI which we proceed with. Had a little bit of a disc disease. He has diabetes which we controlled with sliding scale. He has a history of smoking so possible COPD and some fibrosis. Had him on Solu-Medrol 125 mg 3 times a day. Patient of course was not getting better. He was getting worse. But felt that he could use higher level care. Talked to Dr. Camp at [facility]. He accepted him in transfer. Brief History: This is a 52-year-old male patient but said 2 day history of shortness of breath and dry cough. He was seen in the clinic yesterday and was profoundly hypoxic and sent to the ER and was admitted. Chest x-ray showed a pneumonia on the right side or aspiration. He states the ER told him he had a fever but he does not feel hot or cold. He has no nasal congestion, sore throat. He does have a history of COPD and asthma. He was a smoker for years and is now quit. He also complains of his back pain. He's had it for several months. He states the pain goes down his left leg and both legs are atrophied. He states she's lost over 50 pounds unintended. He's been seen the chiropractor and there is a MRI ordered this morning by Dr. Willard. - Discharge Data Discharge Date: 05/29/17 Discharge Disposition: DC/Tfer to Acute Hospital 02 Condition: Fair - Discharge Diagnosis/Problem(s) (1) Low back pain with left-sided sciatica SNOMED Code(s): 329550267 ICD Code: M54.42 - LUMBAGO WITH SCIATICA, LEFT SIDE Status: Acute Current Visit: No (2) Unintended weight loss SNOMED Code(s): 546111377 ICD Code: R63.4 - ABNORMAL WEIGHT LOSS Status: Acute Current Visit: No (3) Microscopic hematuria SNOMED Code(s): 546718016 ICD Code: R31.29 - OTHER MICROSCOPIC HEMATURIA Status: Acute Current Visit: No (4) Elevated d-dimer SNOMED Code(s): 291455313 ICD Code: R79.89 - OTHER SPECIFIED ABNORMAL FINDINGS OF BLOOD CHEMISTRY Status: Acute Current Visit: Yes (5) Acute exacerbation of COPD with asthma SNOMED Code(s): 154805138 ICD Code: J44.1 - CHRONIC OBSTRUCTIVE PULMONARY DISEASE W (ACUTE) EXACERBATION; J45.901 - UNSPECIFIED ASTHMA WITH (ACUTE) EXACERBATION Status: Acute Current Visit: Yes Problem Details: Admission to [facility]. (6) Community acquired pneumonia SNOMED Code(s): 534471117 ICD Code: J18.9 - PNEUMONIA, UNSPECIFIED ORGANISM Status: Acute Current Visit: Yes Problem Details: Admission to [facility]. Qualifiers: Laterality: right Lung location: unspecified part of lung Qualified Code( s): J18.9 - Pneumonia, unspecified organism (7) Type 2 diabetes mellitus SNOMED Code(s): 39418678 ICD Code: E11.9 - TYPE 2 DIABETES MELLITUS WITHOUT COMPLICATIONS Status: Acute Current Visit: Yes (8) Anxiety SNOMED Code(s): 78540574 ICD Code: F41.9 - ANXIETY DISORDER, UNSPECIFIED Status: Acute Current Visit: Yes (9) Cardiomegaly SNOMED Code(s): 2550318 ICD Code: I51.7 - CARDIOMEGALY Status: Acute Current Visit: Yes - Patient Instructions Diet: Diabetic Diet Activity: Bedrest Driving: Do Not Drive Showering/Bathing: No Showering Other/Special Instructions: 1. Transfer to [facility] per [facility] ambulance. 2. Dr. Conrado cardoza. 3. Continue BiPAP with the current settings. - Discharge Plan Home Medications: Home Meds Celecoxib [CeleBREX] 200 mg PO BEDTIME 05/25/14 [History] Cyclobenzaprine [Flexeril] 10 mg PO TID 05/25/14 [History] QUEtiapine Fumarate [Seroquel] 300 mg PO BEDTIME 05/25/14 [History] Zolpidem Tartrate [Ambien] 10 mg PO BEDTIME 05/25/14 [History] Albuterol Sulfate [Ventolin Hfa] 2 puff INH Q4H PRN 05/25/17 [History] Albuterol [Proventil Neb Soln] 2.5 mg INH Q4H PRN 05/25/17 [History] Baclofen 20 mg PO BEDTIME 05/25/17 [History] EPINEPHrine [Epipen 2-Stefano] 0.3 mg IM ASDIRECTED PRN 05/25/17 [History] Escitalopram [Lexapro] 20 mg PO DAILY 05/25/17 [History] Fluticasone/Salmeterol [Advair Diskus 500-50] 1 puff INH BID 05/25/17 [History] Niacin [Niacin ER] 1,000 mg PO BEDTIME 05/25/17 [History] Nortriptyline 25 mg PO BEDTIME 05/25/17 [History] Omeprazole 20 mg PO BEDTIME 05/25/17 [History] Simvastatin [Zocor] 20 mg PO BEDTIME 05/25/17 [History] Tamsulosin [Flomax] 0.4 mg PO BEDTIME 05/25/17 [History] hydrOXYzine Pamoate [Hydroxyzine Pamoate] 25 - 50 mg PO TID PRN 05/25/17 [ History] rOPINIRole [Requip] 1 mg PO BEDTIME 05/25/17 [History] sitaGLIPtin Phos/Metformin HCl [Janumet 50-1,000 MG] 1 tab PO BID 05/25/17 [ History] traMADol HCl [Tramadol HCl] 50 mg PO TID 05/25/17 [History] Albuterol/Ipratropium [DuoNeb 3.0-0.5 MG/3 ML] 3 ml INH Q2H PRN neb 05/29/17 [ Rx] Albuterol/Ipratropium [DuoNeb 3.0-0.5 MG/3 ML] 3 ml NEB QIDRT neb 05/29/17 [Rx] HYDROcodone/Ibuprofen [Vicoprofen] 1 tab PO Q6H PRN tablet 05/29/17 [Rx] Insulin Aspart [NovoLOG] 0 unit SUBCUT TIDMEALS pen 05/29/17 [Rx] LORazepam [Ativan] 0.5 mg IVPUSH Q4H PRN vial 05/29/17 [Rx] Levofloxacin/Dextrose 5%-Water [Levaquin in D5W 750 MG/150 ML] 750 mg IV Q24H bag 05/29/17 [Rx] Sodium Chloride 0.45% with KCl [1/2 NS with 20 mEq KCl] 1 ml IV ASDIRECTED bag 05/29/17 [Rx] cefTRIAXone [Rocephin] 1,000 mg IV Q24H vial 05/29/17 [Rx] hydrOXYzine HCl [hydrOXYzine] 50 mg PO Q6H PRN tablet 05/29/17 [Rx] methylPREDNISolone Sod Succ [Solu-MEDROL] 125 mg IVPUSH Q8H sdv 05/29/17 [Rx] Forms: ED Department Discharge Referrals: Alex Umana MD [Primary Care Provider] - - Patient Data Vitals - Most Recent: Last Vital Signs Temp 97.8 F 05/29/17 07:30 Pulse 118 H 05/29/17 11:10 Resp 24 H 05/29/17 10:27 BP 125/87 05/29/17 10:27 Pulse Ox 90 L 05/29/17 10:27 Weight - Most Recent: 198 lb I&O - Last 24 hours: Intake & Output 05/28/17 05/29/17 05/29/17 22:59 06:59 14:59 Intake Total 1900 960 240 Output Total 1075 1150 Balance 825 960 -910 Lab Results - Last 24 hrs: Laboratory Results - last 24 hr 05/28/17 05/28/1717 Range/Units 16:10 16:42 21:00 WBC (4.5-12.0) X10-3/uL RBC (4.30-5.75) x10(6)uL Hgb (11.5-15.5) g/dL Hct (30.0-51.3) % MCV (80-96) fL MCH (27.7-33.6) pg MCHC (32.2-35.4) g/dL RDW (11.5-15.5) % Plt Count (125-369) X10(3)uL MPV (7.4-10.4) fL Add Manual Diff Neutrophils % (Manual) (46-82) % Band Neutrophils % (0-6) % Lymphocytes % (Manual) (13-37) % Monocytes % (Manual) (4-12) % ABG pH 7.44 (7.35-7.45) ABG pCO2 34 L (35-45) mmHg ABG pO2 63 L (83-108) mmHg ABG HCO3 23 (22-26) mmol/L ABG O2 Saturation 93 L (96-97) % ABG Base Excess -0.5 (-2-2) Art Test passed O2 Delivery Device Bipap Sodium (135-145) mmol/L Potassium (3.5-5.3) mmol/L Chloride (100-110) mmol/L Carbon Dioxide (23-29) mmol/L BUN (5-20) mg/dL Creatinine (0.6-1.3) mg/dL Est Cr Clr Drug Dosing mL/min Estimated GFR (MDRD) (>60) BUN/Creatinine Ratio (9-20) Glucose (80-116) mg/dL POC Glucose 261 H 196 H (80-116) mg/dL Calcium (8.6-10.2) mg/dL Total Bilirubin (0.1-1.3) mg/dL AST (5-27) IU/L ALT (14-26) IU/L Alkaline Phosphatase (56-112) IU/L Total Protein (6.0-8.0) g/dL Albumin (3.5-5.2) g/dL Globulin g/dL Albumin/Globulin Ratio 05/29/17 05/29/17 05/29/17 Range/Units 06:15 06:15 07:10 WBC 16.4 H (4.5-12.0) X10-3/uL RBC 3.85 L (4.30-5.75) x10(6)uL Hgb 12.0 (11.5-15.5) g/dL Hct 35.0 (30.0-51.3) % MCV 90.8 (80-96) fL MCH 31.1 (27.7-33.6) pg MCHC 34.2 (32.2-35.4) g/dL RDW 14.6 (11.5-15.5) % Plt Count 123 L (125-369) X10(3)uL MPV 7.2 L (7.4-10.4) fL Add Manual Diff Yes Neutrophils % (Manual) 85 H (46-82) % Band Neutrophils % 4 (0-6) % Lymphocytes % (Manual) 7 L (13-37) % Monocytes % (Manual) 4 (4-12) % ABG pH 7.46 H (7.35-7.45) ABG pCO2 35 (35-45) mmHg ABG pO2 78 L (83-108) mmHg ABG HCO3 24 (22-26) mmol/L ABG O2 Saturation 96 (96-97) % ABG Base Excess 1.3 (-2-2) Art Test Passed O2 Delivery Device Bipap Sodium 136 (135-145) mmol/L Potassium 4.2 (3.5-5.3) mmol/L Chloride 104 (100-110) mmol/L Carbon Dioxide 25 (23-29) mmol/L BUN 13 (5-20) mg/dL Creatinine 0.5 L (0.6-1.3) mg/dL Est Cr Clr Drug Dosing 152.04 mL/min Estimated GFR (MDRD) > 60 (>60) BUN/Creatinine Ratio 26.0 H (9-20) Glucose 236 H (80-116) mg/dL POC Glucose (80-116) mg/dL Calcium 8.4 L (8.6-10.2) mg/dL Total Bilirubin 0.8 (0.1-1.3) mg/dL AST 33 H D (5-27) IU/L ALT 58 H D (14-26) IU/L Alkaline Phosphatase 172 H (56-112) IU/L Total Protein 4.9 L (6.0-8.0) g/dL Albumin 2.2 L (3.5-5.2) g/dL Globulin 2.7 g/dL Albumin/Globulin Ratio 0.8 05/29/17 Range/Units 11:41 WBC (4.5-12.0) X10-3/uL RBC (4.30-5.75) x10(6)uL Hgb (11.5-15.5) g/dL Hct (30.0-51.3) % MCV (80-96) fL MCH (27.7-33.6) pg MCHC (32.2-35.4) g/dL RDW (11.5-15.5) % Plt Count (125-369) X10(3)uL MPV (7.4-10.4) fL Add Manual Diff Neutrophils % (Manual) (46-82) % Band Neutrophils % (0-6) % Lymphocytes % (Manual) (13-37) % Monocytes % (Manual) (4-12) % ABG pH (7.35-7.45) ABG pCO2 (35-45) mmHg ABG pO2 (83-108) mmHg ABG HCO3 (22-26) mmol/L ABG O2 Saturation (96-97) % ABG Base Excess (-2-2) Art Test O2 Delivery Device Sodium (135-145) mmol/L Potassium (3.5-5.3) mmol/L Chloride (100-110) mmol/L Carbon Dioxide (23-29) mmol/L BUN (5-20) mg/dL Creatinine (0.6-1.3) mg/dL Est Cr Clr Drug Dosing mL/min Estimated GFR (MDRD) (>60) BUN/Creatinine Ratio (9-20) Glucose (80-116) mg/dL POC Glucose 268 H (80-116) mg/dL Calcium (8.6-10.2) mg/dL Total Bilirubin (0.1-1.3) mg/dL AST (5-27) IU/L ALT (14-26) IU/L Alkaline Phosphatase (56-112) IU/L Total Protein (6.0-8.0) g/dL Albumin (3.5-5.2) g/dL Globulin g/dL Albumin/Globulin Ratio JATINDER Results - Last 24 hrs: Microbiology 05/26/17 08:27 Aerobic Blood Culture - Preliminary Blood - Venous - Lab Draw NO GROWTH AFTER 3 DAYS Anaerobic Blood Culture - Preliminary NO GROWTH AFTER 3 DAYS 05/26/17 08:19 Aerobic Blood Culture - Preliminary Blood - Venous NO GROWTH AFTER 3 DAYS Anaerobic Blood Culture - Preliminary NO GROWTH AFTER 3 DAYS Med Orders - Current: Current Medications Albuterol/Ipratropium (Duoneb 3.0-0.5 Mg/3 Ml) 3 ml NEB QIDRT [facility] Last Admin: 05/29/17 11:00 Dose: 3 ml Albuterol/Ipratropium (Duoneb 3.0-0.5 Mg/3 Ml) 3 ml INH Q2H PRN PRN Reason: Shortness of Breath Baclofen (Lioresal) 10 mg PO BEDTIME [facility] Last Admin: 05/28/17 21:04 Dose: 10 mg Celecoxib (Celebrex) 200 mg PO BEDTIME [facility] Last Admin: 05/28/17 21:03 Dose: 200 mg Cyclobenzaprine HCl (Flexeril) 10 mg PO Q8H PRN PRN Reason: Pain Last Admin: 05/29/17 09:20 Dose: 10 mg Escitalopram Oxalate (Lexapro) 20 mg PO DAILY [facility] Last Admin: 05/29/17 08:54 Dose: 20 mg Hydrocodone Bitartrate/Ibuprofen (Vicoprofen) 1 tab PO Q6H PRN PRN Reason: Pain Last Admin: 05/29/17 11:37 Dose: 1 tab Hydroxyzine HCl (Atarax) 50 mg PO Q6H PRN PRN Reason: Anxiety Last Admin: 05/29/17 08:53 Dose: 50 mg Levofloxacin/Dextrose 750 mg/ (Premix) 150 mls @ 100 mls/hr IV Q24H [facility] Last Admin: 05/28/17 16:32 Dose: 100 mls/hr Ceftriaxone Sodium 1,000 mg/ (Sodium Chloride) 50 mls @ 100 mls/hr IV Q24H [facility] Last Admin: 05/29/17 09:15 Dose: 100 mls/hr Potassium Chloride/Sodium Chloride (1/2 Ns With 20 Meq Kcl) 1,000 mls @ 125 mls /hr IV ASDIRECTED [facility] Last Admin: 05/29/17 03:46 Dose: 125 mls/hr Insulin Aspart (Novolog) 0 unit SUBCUT TIDMEALS [facility]THA PRN Reason: Protocol Last Admin: 05/29/17 08:52 Dose: 6 unit Lorazepam (Ativan) 0.5 mg IVPUSH Q4H PRN PRN Reason: Anxiety Last Admin: 05/29/17 11:37 Dose: 0.5 mg Methylprednisolone Sodium Succinate (Solu-Medrol) 125 mg IVPUSH Q8H [facility] Last Admin: 05/29/17 08:53 Dose: 125 mg Niacin (Niacin) 500 mg PO BEDTIME [facility] Last Admin: 05/28/17 21:04 Dose: 500 mg Nortriptyline HCl (Nortriptyline) 25 mg PO BEDTIME [facility] Last Admin: 05/28/17 21:04 Dose: 25 mg Pantoprazole Sodium (Protonix) 40 mg PO BEDTIME [facility] Last Admin: 05/28/17 21:04 Dose: 40 mg Quetiapine Fumarate (Seroquel) 300 mg PO BEDTIME [facility] Last Admin: 05/28/17 21:05 Dose: 300 mg Ropinirole HCl (Requip) 1 mg PO BEDTIME [facility] Last Admin: 05/28/17 21:04 Dose: 1 mg Simvastatin (Zocor) 20 mg PO BEDTIME [facility] Last Admin: 05/28/17 21:05 Dose: 20 mg Sitagliptin Phosphate (Januvia) 50 mg PO BID [facility] Last Admin: 05/29/17 08:53 Dose: 50 mg Sodium Chloride (Saline Flush) 10 ml FLUSH ASDIRECTED PRN PRN Reason: Keep Vein Open Last Admin: 05/28/17 18:14 Dose: 10 ml Tamsulosin HCl (Flomax) 0.4 mg PO BEDTIME [facility] Last Admin: 05/28/17 21:03 Dose: 0.4 mg Zolpidem Tartrate (Ambien) 10 mg PO BEDTIME [facility] Last Admin: 05/28/17 21:03 Dose: 10 mg Discontinued Medications Albuterol/Ipratropium (Duoneb 3.0-0.5 Mg/3 Ml) 3 ml NEB ONETIME ONE Stop: 05/25/17 13:47 Last Admin: 05/25/17 13:50 Dose: 3 ml Albuterol/Ipratropium (Duoneb 3.0-0.5 Mg/3 Ml) 3 ml INH ASDIRECTED PRN PRN Reason: Shortness of Breath Last Admin: 05/26/17 02:57 Dose: 3 ml Hydromorphone HCl (Dilaudid) 1 mg IVPUSH Q4H PRN PRN Reason: Breakthrough Pain Last Admin: 05/28/17 12:42 Dose: 1 mg Hydroxyzine HCl (Atarax) 25 mg PO TID PRN PRN Reason: Anxiety Last Admin: 05/26/17 16:10 Dose: 25 mg Hydroxyzine HCl (Atarax) 25 mg PO Q6H PRN PRN Reason: Anxiety Last Admin: 05/27/17 15:09 Dose: 25 mg Hydroxyzine HCl (Atarax) 50 mg PO Q6H [facility] Last Admin: 05/27/17 16:57 Dose: Not Given Levofloxacin/Dextrose 750 mg/ (Premix) 150 mls @ 100 mls/hr IV ONETIME ONE Stop: 05/25/17 16:56 Last Admin: 05/25/17 16:25 Dose: 100 mls/hr Sodium Chloride (Normal Saline) 1,000 mls @ 125 mls/hr IV ASDIRECTED [facility] Last Admin: 05/28/17 13:51 Dose: 125 mls/hr Aztreonam 2 gm/ Sodium (Chloride) 100 mls @ 200 mls/hr IV ONETIME ONE Stop: 05/25/17 18:29 Last Admin: 05/25/17 18:05 Dose: 200 mls/hr Tobramycin 200 mg/ Sodium (Chloride) 105 mls @ 100 mls/hr IV ONETIME ONE Stop: 05/25/17 20:02 Last Admin: 05/25/17 18:50 Dose: 100 mls/hr Iopamidol (Isovue-370 (76%)) 75 ml IV ASDIRECTED ONE Stop: 05/26/17 11:28 Last Admin: 05/26/17 11:56 Dose: 71 ml Metformin HCl (Glucophage) 1,000 mg PO BID [facility] Last Admin: 05/26/17 08:45 Dose: 1,000 mg Methylprednisolone Sodium Succinate (Solu-Medrol) 125 mg IVPUSH Q12H [facility] Last Admin: 05/27/17 07:49 Dose: 125 mg Hydroxyzine Pamoate (25mg) 25 mg PO TID PRN PRN Reason: Anxiety Prednisone (Prednisone) 60 mg PO ONETIME ONE Stop: 05/25/17 15:24 Last Admin: 05/25/17 17:02 Dose: 60 mg Ropinirole HCl (Requip) 1 mg PO BEDTIME [facility] Last Admin: 05/25/17 20:55 Dose: Not Given Ropinirole HCl (Requip) Confirm Administered Dose 1 mg .ROUTE .STK-MED ONE Stop: 05/25/17 20:39 Last Admin: 05/25/17 20:51 Dose: 1 mg Simvastatin (Zocor) 20 mg PO BEDTIME [facility] Last Admin: 05/25/17 20:53 Dose: 20 mg *Q Meaningful Use (DIS) - VTE *Q VTE Criteria *Q: - Stroke *Q Stroke Criteria *Q: - AMI *Q AMI Criteria *Q:
--- NOTE | 2017-05-29 12:02 | PCM.PN ---
- General Info Date of Service: 05/29/17 Admission Dx/Problem (Free Text): Patient states that he had no fevers or chills or diaphoresis last night. Breathing is about the same. He says his anxiety is the worst thing is experiencing. Lorazepam is helping that. - Patient Data Vitals - Most Recent: Last Vital Signs Temp 97.8 F 05/29/17 07:30 Pulse 118 H 05/29/17 11:10 Resp 24 H 05/29/17 10:27 BP 125/87 05/29/17 10:27 Pulse Ox 90 L 05/29/17 10:27 Weight - Most Recent: 198 lb I&O - Last 24 Hours: Intake & Output 05/28/17 05/29/17 05/29/17 22:59 06:59 14:59 Intake Total 1900 960 240 Output Total 1075 1150 Balance 825 960 -910 Lab Results Last 24 Hours: Laboratory Results - last 24 hr 05/28/17 05/28/17 05/28/17 Range/Units 16:10 16:42 21:00 WBC (4.5-12.0) X10-3/uL RBC (4.30-5.75) x10(6)uL Hgb (11.5-15.5) g/dL Hct (30.0-51.3) % MCV (80-96) fL MCH (27.7-33.6) pg MCHC (32.2-35.4) g/dL RDW (11.5-15.5) % Plt Count (125-369) X10(3)uL MPV (7.4-10.4) fL Add Manual Diff Neutrophils % (Manual) (46-82) % Band Neutrophils % (0-6) % Lymphocytes % (Manual) (13-37) % Monocytes % (Manual) (4-12) % ABG pH 7.44 (7.35-7.45) ABG pCO2 34 L (35-45) mmHg ABG pO2 63 L (83-108) mmHg ABG HCO3 23 (22-26) mmol/L ABG O2 Saturation 93 L (96-97) % ABG Base Excess -0.5 (-2-2) Art Test passed O2 Delivery Device Bipap Sodium (135-145) mmol/L Potassium (3.5-5.3) mmol/L Chloride (100-110) mmol/L Carbon Dioxide (23-29) mmol/L BUN (5-20) mg/dL Creatinine (0.6-1.3) mg/dL Est Cr Clr Drug Dosing mL/min Estimated GFR (MDRD) (>60) BUN/Creatinine Ratio (9-20) Glucose (80-116) mg/dL POC Glucose 261 H 196 H (80-116) mg/dL Calcium (8.6-10.2) mg/dL Total Bilirubin (0.1-1.3) mg/dL AST (5-27) IU/L ALT (14-26) IU/L Alkaline Phosphatase (56-112) IU/L Total Protein (6.0-8.0) g/dL Albumin (3.5-5.2) g/dL Globulin g/dL Albumin/Globulin Ratio 05/29/17 05/29/17 05/29/17 Range/Units 06:15 06:15 07:10 WBC 16.4 H (4.5-12.0) X10-3/uL RBC 3.85 L (4.30-5.75) x10(6)uL Hgb 12.0 (11.5-15.5) g/dL Hct 35.0 (30.0-51.3) % MCV 90.8 (80-96) fL MCH 31.1 (27.7-33.6) pg MCHC 34.2 (32.2-35.4) g/dL RDW 14.6 (11.5-15.5) % Plt Count 123 L (125-369) X10(3)uL MPV 7.2 L (7.4-10.4) fL Add Manual Diff Yes Neutrophils % (Manual) 85 H (46-82) % Band Neutrophils % 4 (0-6) % Lymphocytes % (Manual) 7 L (13-37) % Monocytes % (Manual) 4 (4-12) % ABG pH 7.46 H (7.35-7.45) ABG pCO2 35 (35-45) mmHg ABG pO2 78 L (83-108) mmHg ABG HCO3 24 (22-26) mmol/L ABG O2 Saturation 96 (96-97) % ABG Base Excess 1.3 (-2-2) Art Test Passed O2 Delivery Device Bipap Sodium 136 (135-145) mmol/L Potassium 4.2 (3.5-5.3) mmol/L Chloride 104 (100-110) mmol/L Carbon Dioxide 25 (23-29) mmol/L BUN 13 (5-20) mg/dL Creatinine 0.5 L (0.6-1.3) mg/dL Est Cr Clr Drug Dosing 152.04 mL/min Estimated GFR (MDRD) > 60 (>60) BUN/Creatinine Ratio 26.0 H (9-20) Glucose 236 H (80-116) mg/dL POC Glucose (80-116) mg/dL Calcium 8.4 L (8.6-10.2) mg/dL Total Bilirubin 0.8 (0.1-1.3) mg/dL AST 33 H D (5-27) IU/L ALT 58 H D (14-26) IU/L Alkaline Phosphatase 172 H (56-112) IU/L Total Protein 4.9 L (6.0-8.0) g/dL Albumin 2.2 L (3.5-5.2) g/dL Globulin 2.7 g/dL Albumin/Globulin Ratio 0.8 09/11/17 Range/Units 11:41 WBC (4.5-12.0) X10-3/uL RBC (4.30-5.75) x10(6)uL Hgb (11.5-15.5) g/dL Hct (30.0-51.3) % MCV (80-96) fL MCH (27.7-33.6) pg MCHC (32.2-35.4) g/dL RDW (11.5-15.5) % Plt Count (125-369) X10(3)uL MPV (7.4-10.4) fL Add Manual Diff Neutrophils % (Manual) (46-82) % Band Neutrophils % (0-6) % Lymphocytes % (Manual) (13-37) % Monocytes % (Manual) (4-12) % ABG pH (7.35-7.45) ABG pCO2 (35-45) mmHg ABG pO2 (83-108) mmHg ABG HCO3 (22-26) mmol/L ABG O2 Saturation (96-97) % ABG Base Excess (-2-2) Art Test O2 Delivery Device Sodium (135-145) mmol/L Potassium (3.5-5.3) mmol/L Chloride (100-110) mmol/L Carbon Dioxide (23-29) mmol/L BUN (5-20) mg/dL Creatinine (0.6-1.3) mg/dL Est Cr Clr Drug Dosing mL/min Estimated GFR (MDRD) (>60) BUN/Creatinine Ratio (9-20) Glucose (80-116) mg/dL POC Glucose 268 H (80-116) mg/dL Calcium (8.6-10.2) mg/dL Total Bilirubin (0.1-1.3) mg/dL AST (5-27) IU/L ALT (14-26) IU/L Alkaline Phosphatase (56-112) IU/L Total Protein (6.0-8.0) g/dL Albumin (3.5-5.2) g/dL Globulin g/dL Albumin/Globulin Ratio Jose Results Last 24 Hours: Microbiology 05/26/17 08:27 Aerobic Blood Culture - Preliminary Blood - Venous - Lab Draw NO GROWTH AFTER 3 DAYS Anaerobic Blood Culture - Preliminary NO GROWTH AFTER 3 DAYS 05/26/17 08:19 Aerobic Blood Culture - Preliminary Blood - Venous NO GROWTH AFTER 3 DAYS Anaerobic Blood Culture - Preliminary NO GROWTH AFTER 3 DAYS Med Orders - Current: Current Medications Albuterol/Ipratropium (Duoneb 3.0-0.5 Mg/3 Ml) 3 ml NEB QIDRT [facility] Last Admin: 05/29/17 11:00 Dose: 3 ml Albuterol/Ipratropium (Duoneb 3.0-0.5 Mg/3 Ml) 3 ml INH Q2H PRN PRN Reason: Shortness of Breath Baclofen (Lioresal) 10 mg PO BEDTIME [facility] Last Admin: 05/28/17 21:04 Dose: 10 mg Celecoxib (Celebrex) 200 mg PO BEDTIME [facility] Last Admin: 05/28/17 21:03 Dose: 200 mg Cyclobenzaprine HCl (Flexeril) 10 mg PO Q8H PRN PRN Reason: Pain Last Admin: 05/29/17 09:20 Dose: 10 mg Escitalopram Oxalate (Lexapro) 20 mg PO DAILY [facility] Last Admin: 05/29/17 08:54 Dose: 20 mg Hydrocodone Bitartrate/Ibuprofen (Vicoprofen) 1 tab PO Q6H PRN PRN Reason: Pain Last Admin: 05/29/17 11:37 Dose: 1 tab Hydroxyzine HCl (Atarax) 50 mg PO Q6H PRN PRN Reason: Anxiety Last Admin: 05/29/17 08:53 Dose: 50 mg Levofloxacin/Dextrose 750 mg/ (Premix) 150 mls @ 100 mls/hr IV Q24H [facility] Last Admin: 05/28/17 16:32 Dose: 100 mls/hr Ceftriaxone Sodium 1,000 mg/ (Sodium Chloride) 50 mls @ 100 mls/hr IV Q24H [facility] Last Admin: 05/29/17 09:15 Dose: 100 mls/hr Potassium Chloride/Sodium Chloride (1/2 Ns With 20 Meq Kcl) 1,000 mls @ 125 mls /hr IV ASDIRECTED [facility] Last Admin: 05/29/17 03:46 Dose: 125 mls/hr Insulin Aspart (Novolog) 0 unit SUBCUT TIDMEALS [facility] PRN Reason: Protocol Last Admin: 05/29/17 08:52 Dose: 6 unit Lorazepam (Ativan) 0.5 mg IVPUSH Q4H PRN PRN Reason: Anxiety Last Admin: 05/29/17 11:37 Dose: 0.5 mg Methylprednisolone Sodium Succinate (Solu-Medrol) 125 mg IVPUSH Q8H [facility] Last Admin: 05/29/17 08:53 Dose: 125 mg Niacin (Niacin) 500 mg PO BEDTIME [facility] Last Admin: 05/28/17 21:04 Dose: 500 mg Nortriptyline HCl (Nortriptyline) 25 mg PO BEDTIME [facility] Last Admin: 05/28/17 21:04 Dose: 25 mg Pantoprazole Sodium (Protonix) 40 mg PO BEDTIME [facility] Last Admin: 05/28/17 21:04 Dose: 40 mg Quetiapine Fumarate (Seroquel) 300 mg PO BEDTIME [facility] Last Admin: 05/28/17 21:05 Dose: 300 mg Ropinirole HCl (Requip) 1 mg PO BEDTIME [facility] Last Admin: 05/28/17 21:04 Dose: 1 mg Simvastatin (Zocor) 20 mg PO BEDTIME [facility] Last Admin: 05/28/17 21:05 Dose: 20 mg Sitagliptin Phosphate (Januvia) 50 mg PO BID [facility] Last Admin: 05/29/17 08:53 Dose: 50 mg Sodium Chloride (Saline Flush) 10 ml FLUSH ASDIRECTED PRN PRN Reason: Keep Vein Open Last Admin: 05/28/17 18:14 Dose: 10 ml Tamsulosin HCl (Flomax) 0.4 mg PO BEDTIME [facility] Last Admin: 05/28/17 21:03 Dose: 0.4 mg Zolpidem Tartrate (Ambien) 10 mg PO BEDTIME [facility] Last Admin: 05/28/17 21:03 Dose: 10 mg Discontinued Medications Albuterol/Ipratropium (Duoneb 3.0-0.5 Mg/3 Ml) 3 ml NEB ONETIME ONE Stop: 05/25/17 13:47 Last Admin: 05/25/17 13:50 Dose: 3 ml Albuterol/Ipratropium (Duoneb 3.0-0.5 Mg/3 Ml) 3 ml INH ASDIRECTED PRN PRN Reason: Shortness of Breath Last Admin: 05/26/17 02:57 Dose: 3 ml Hydromorphone HCl (Dilaudid) 1 mg IVPUSH Q4H PRN PRN Reason: Breakthrough Pain Last Admin: 05/28/17 12:42 Dose: 1 mg Hydroxyzine HCl (Atarax) 25 mg PO TID PRN PRN Reason: Anxiety Last Admin: 05/26/17 16:10 Dose: 25 mg Hydroxyzine HCl (Atarax) 25 mg PO Q6H PRN PRN Reason: Anxiety Last Admin: 05/27/17 15:09 Dose: 25 mg Hydroxyzine HCl (Atarax) 50 mg PO Q6H [facility] Last Admin: 05/27/17 16:57 Dose: Not Given Levofloxacin/Dextrose 750 mg/ (Premix) 150 mls @ 100 mls/hr IV ONETIME ONE Stop: 05/25/17 16:56 Last Admin: 05/25/17 16:25 Dose: 100 mls/hr Sodium Chloride (Normal Saline) 1,000 mls @ 125 mls/hr IV ASDIRECTED [facility] Last Admin: 05/28/17 13:51 Dose: 125 mls/hr Aztreonam 2 gm/ Sodium (Chloride) 100 mls @ 200 mls/hr IV ONETIME ONE Stop: 05/25/17 18:29 Last Admin: 05/25/17 18:05 Dose: 200 mls/hr Tobramycin 200 mg/ Sodium (Chloride) 105 mls @ 100 mls/hr IV ONETIME ONE Stop: 05/25/17 20:02 Last Admin: 05/25/17 18:50 Dose: 100 mls/hr Iopamidol (Isovue-370 (76%)) 75 ml IV ASDIRECTED ONE Stop: 05/26/17 11:28 Last Admin: 05/26/17 11:56 Dose: 71 ml Metformin HCl (Glucophage) 1,000 mg PO BID [facility] Last Admin: 05/26/17 08:45 Dose: 1,000 mg Methylprednisolone Sodium Succinate (Solu-Medrol) 125 mg IVPUSH Q12H [facility] Last Admin: 05/27/17 07:49 Dose: 125 mg Hydroxyzine Pamoate (25mg) 25 mg PO TID PRN PRN Reason: Anxiety Prednisone (Prednisone) 60 mg PO ONETIME ONE Stop: 05/25/17 15:24 Last Admin: 05/25/17 17:02 Dose: 60 mg Ropinirole HCl (Requip) 1 mg PO BEDTIME [facility] Last Admin: 05/25/17 20:55 Dose: Not Given Ropinirole HCl (Requip) Confirm Administered Dose 1 mg .ROUTE .STK-MED ONE Stop: 05/25/17 20:39 Last Admin: 05/25/17 20:51 Dose: 1 mg Simvastatin (Zocor) 20 mg PO BEDTIME [facility] Last Admin: 05/25/17 20:53 Dose: 20 mg - Exam General: Alert, Oriented, Cooperative Neck: Supple Lungs: Normal Respiratory Effort, Crackles (Minimal) Extremities: Normal Inspection Psy/Mental Status: Anxious - Problem List & Annotations (1) Low back pain with left-sided sciatica SNOMED Code(s): 024888636 Code(s): M54.42 - LUMBAGO WITH SCIATICA, LEFT SIDE Status: Acute Current Visit: No (2) Unintended weight loss SNOMED Code(s): 995314650 Code(s): R63.4 - ABNORMAL WEIGHT LOSS Status: Acute Current Visit: No (3) Microscopic hematuria SNOMED Code(s): 211184340 Code(s): R31.29 - OTHER MICROSCOPIC HEMATURIA Status: Acute Current Visit : No (4) Elevated d-dimer SNOMED Code(s): 971275952 Code(s): R79.89 - OTHER SPECIFIED ABNORMAL FINDINGS OF BLOOD CHEMISTRY Status: Acute Current Visit: Yes (5) Acute exacerbation of COPD with asthma SNOMED Code(s): 421216916 Code(s): J44.1 - CHRONIC OBSTRUCTIVE PULMONARY DISEASE W (ACUTE) EXACERBATION ; J45.901 - UNSPECIFIED ASTHMA WITH (ACUTE) EXACERBATION Status: Acute Current Visit: Yes Annotation/Comment:: Admission to [facility]. (6) Community acquired pneumonia SNOMED Code(s): 532389590 Code(s): J18.9 - PNEUMONIA, UNSPECIFIED ORGANISM Status: Acute Current Visit: Yes Qualifiers: Laterality: right Lung location: unspecified part of lung Qualified Code( s): J18.9 - Pneumonia, unspecified organism Annotation/Comment:: Admission to [facility]. (7) Type 2 diabetes mellitus SNOMED Code(s): 31309670 Code(s): E11.9 - TYPE 2 DIABETES MELLITUS WITHOUT COMPLICATIONS Status: Acute Current Visit: Yes (8) Anxiety SNOMED Code(s): 78081799 Code(s): F41.9 - ANXIETY DISORDER, UNSPECIFIED Status: Acute Current Visit: Yes (9) Cardiomegaly SNOMED Code(s): 5512029 Code(s): I51.7 - CARDIOMEGALY Status: Acute Current Visit: Yes - Problem List Review Problem List Initiated/Reviewed/Updated: Yes - My Orders Last 24 Hours: My Active Orders 05/28/17 16:51 LORazepam [Ativan] 0.5 mg IVPUSH Q4H PRN 05/28/17 16:53 HYDROcodone/Ibuprofen [Vicoprofen] 1 tab PO Q6H PRN 05/28/17 17:00 Sodium Chloride 0.45% with KCl [1/2 NS with 20 mEq KCl] 1,000 ml IV ASDIRECTED 05/29/17 11:42 Ready for Discharge [RC] PER UNIT ROUTINE - Plan Plan:: 1. Discussed with the patient about transfer. He is willing. Called Britney mariano to Dr. [facility]. He agreed to take him in transfer. He' ll be transferred with [facility] ambulance with the BiPAP. Continue his current medications.
[2017-05-29 12:03] VITALS: BP 120/81
== END 2017-05-29 15:25 | DRG 190 ==
LOC: FB.ED 13:38 → FB.MS 15:19 → FB.ICU 05-27 09:08
PROVIDERS: ADMIT Family Medicine; ATTEND Family Medicine
DX: J44.0 Chronic obstructive pulmonary disease with (acute) lower respiratory infection (principal); J18.9 Pneumonia, unspecified organism; J44.1 Chronic obstructive pulmonary disease with (acute) exacerbation; R09.02 Hypoxemia; I10 Essential (primary) hypertension; Z87.891 Personal history of nicotine dependence; E11.9 Type 2 diabetes mellitus without complications; Z79.84 Long term (current) use of oral hypoglycemic drugs; R31.29 Other microscopic hematuria; R79.1 Abnormal coagulation profile; R05 Cough; R06.02 Shortness of breath; I51.7 Cardiomegaly; R63.4 Abnormal weight loss; G89.29 Other chronic pain; M54.42 Lumbago with sciatica, left side; F41.9 Anxiety disorder, unspecified; F32.9 Major depressive disorder, single episode, unspecified; E78.00 Pure hypercholesterolemia, unspecified; H54.7 Unspecified visual loss; Z88.1 Allergy status to other antibiotic agents; Z91.030 Bee allergy status; Z91.040 Latex allergy status; Z91.018 Allergy to other foods
CPT/HCPCS: 36415; 71010; 80048; 83036; 83880; 84443; 84484; 85025; 93005; 99285; J7620; 36600; 71020; 71275; 72148; 74177; 80053; 81001; 82803; 82962; 85379; 87040; 87389; 87449; 94640-76; 94660; 99284; A9270-GY; J0696; J1170; J1956; J2060; J2930; J3260; J3480; J7030; J7040; J7050; Q9967; S0073